=== PATIENT | male | born 1940 | race Caucasian/White ===

== ENCOUNTER 2019-01-26 16:11 | Inpatient (IN) | payer OTHER ==
[~2019-01-26] VITALS: Ht 167.6 cm; Wt 105.9 kg
[~2019-01-26 16:11] MED LIST: ACCUNEB SO1.25 MG/1 INH; ACETAMINOP160 MG/12 PER TUBE; ALDACTONE50 MG PO; AMLODIPINE BESY10 MG PO; ANTI-GAS40 MG/0.6 PO; AUGMENTIN 875875 MG PO; BISACODYL SUPP10 MG RECTAL; CALCIUM + VITA1 EACH PO; CARAFATE 1 GM TA1 G1 PO; CARAFATE1 GM/10 ML PO; CHOLESTYRAMINE R5 GM MC; COLACE100 MG PO; ERYTHROMYCIN250 M1 PO; FAMOTIDINE40 MG/5 ML PER TUBE; FENTANYL PA25 MCG/HR TRANSDERM; FLOMAX0.4 MG PO; GLUCOTROL5 MG PO; HYDROCODONE/ACETAMIN PO; LISINOPRIL30 MG PO; LOPERAMIDE 2 MG2 M1 PO; LOPRESSOR25 PO; LOPRESSOR50 PO; NORCO 5-325 TA1 EACH PO; NOVOLOG100 UNIT/1 SUBQ; OMEPRAZOLE40 MG PO; ONDANSETRON HCL4 M2 PO; PACERONE 200 M200 M1 PO; PREVACID 15 MG15 M4 PER TUBE; PRINIVIL20 MG PO; PROBIOTIC1 EAC1 PO; PROTONIX40 M1 PO; REGLAN10 MG PO; ZANTAC 150MG T150 MG PO; ZOCOR20 MG PO
[2019-01-26 16:18] VITALS: BP 167/81
[2019-01-26 16:40] LABS: URINE BILIRUBIN NEGATIVE (Negative); URINE BLOOD NEGATIVE (Negative); URINE CLARITY CLEAR; URINE COLOR YELLOW; URINE GLUCOSE-RANDOM* NEGATIVE (Negative); URINE KETONES NEGATIVE (Negative); URINE LEUKOCYTES-REFLEX NEGATIVE (Negative); URINE NITRITE-REFLEX NEGATIVE (Negative); URINE PROTEIN (DIPSTICK) TRACE (Negative); URINE SPECIFIC GRAVITY 1.015 (1.005-1.035); URINE UROBILINOGEN 0.2 E.U./dl (0.2-1.0)
[2019-01-26 17:02] LABS: HEMATOCRIT 42.9 % (42.0-52.0); HEMOGLOBIN 14.6 gm/dL (14.0-18.0); MCH 33.2 pg (26.0-34.0); MCHC 33.9 g/dL (28.0-37.0); MCV 97.8 fL (80.0-100.0); PLATELET COUNT 159 thou/uL (150-400); RBC 4.38 mil/uL (4.50-6.00); RDW 14.6 % (10.5-14.5); WBC 12.1 thou/uL (4.0-11.0)
[2019-01-26] MEDS ORDERED: TRADJENTA5 MG (17:09)
[2019-01-26] MEDS ORDERED: GLIPIZIDE 10 MG10 MG PO (17:10)
[2019-01-26] MEDS ORDERED: GLUCOTROL5 MG PO (17:10)
[2019-01-26 17:12] LABS: CALCIUM 9.9 mg/dL (8.5-10.1); CREATININE 1.4 mg/dL (0.7-1.3)
[2019-01-26] MEDS ORDERED: AMLODIPINE BESY10 MG PO (17:12)
[2019-01-26] MEDS ORDERED: METOCLOPRAMIDE10 MG PO (17:14)
[2019-01-26] MEDS ORDERED: PROTONIX40 M1 PO (17:14)
[2019-01-26] MEDS ORDERED: ZOCOR20 MG PO (17:15)
[2019-01-26 17:18] LABS: ALBUMIN 3.4 g/dL (3.4-5.0); TOTAL BILIRUBIN 0.8 mg/dL (<0.1-1.0); TOTAL PROTEIN 8.3 g/dL (6.4-8.2)
[2019-01-26 17:26] LABS: ABSOLUTE NEUTROPHILS 8.5 thou/uL (1.4-8.2)
[2019-01-26 18:30] VITALS: BP 133/73
[2019-01-26 18:44] VITALS: BP 141/71
[2019-01-26 19:08] LABS: INR 1.5; PROTIME 15.7 Seconds (9.3-11.4)
[2019-01-26 20:29] VITALS: BP 148/69
--- NOTE | 2019-01-27 03:13 | NUR ---
PATIENT ARRIVEN ON UNIT AT 191 VIA W/C ACCOMPANINED BY FAMILY AND ED PERSONEL. PATIENT ALERT AND ORIENTED X4. WEAK ON LEFT SIDE AND NEEDS HELP WALKING. USES URINAL. PATIENT NPO WITH SIPS WITH PO MEDS. C/O PAIN X1. MED GIVEN. SLEPT OFF AND ON DURING NIGHT.
[2019-01-27 04:06] VITALS: BP 146/76
[2019-01-27 05:45] LABS: HEMATOCRIT 41.8 % (42.0-52.0); HEMOGLOBIN 14.1 gm/dL (14.0-18.0); MCHC 33.7 g/dL (28.0-37.0); MCV 98.1 fL (80.0-100.0); RBC 4.26 mil/uL (4.50-6.00); RDW 14.8 % (10.5-14.5)
[2019-01-27 06:03] LABS: CALCIUM 9.1 mg/dL (8.5-10.1); CREATININE 1.5 mg/dL (0.7-1.3); MAGNESIUM 1.5 mg/dL (1.8-2.4); PHOSPHORUS 2.8 mg/dL (2.5-4.9)
[2019-01-27 06:07] LABS: POTASSIUM 5.1 mmol/L (3.5-5.1)
[2019-01-27 07:40] VITALS: BP 165/82
[2019-01-27 14:39] LABS: INR 1.5; PROTIME 15.7 Seconds (9.3-11.4)
--- NOTE | 2019-01-27 15:21 | NUR ---
ASSUMED CARE OF PT AT 0700. ASSESSMENT CHARTED. A&O,X4. STRICT NPO, OKAY TO GIVE METOPROLOL WITH SIP OF WATER PER PHYSICIAN. NO N/V THIS SHIFT. UPPER GI STUDY THIS AM, INCONCLUSIVE. DR. ANDERSON NOTIFIED. NEW ORDERS FOR KUB TOMORROW. CONTINUE NPO. FAMILY AT BEDSIDE. Q6H ACCUCHECKS, INSULIN GIVEN NEEDED PER SLIDING SCALE - HELD DUE TO NPO. WILL CONTINUE TO MONITOR.
--- NOTE | 2019-01-27 16:51 | NUR ---
ASSESSMENT-PT LIVES AT HOME WITH HIS WHO IS INDEPENDNT AND ABLE TO ASSIST AT HOME. PT WALKS ON HIS OWN AND DOES HIS OWN ADLS. BOTH DRIVE. THEY HAVE A WALK-IN TUB. THEY HAVE A DTR IN THE AREA THAT CHECKS ON THEM. PT HAS HAD HH SEVICES IN THE PAST BUT CANNOT REMEMBER THE NAME OF THE AGENCY. PT/ VOICE NO DC CPONCERNS AT THIS TIME. FOLLOWING TO ASSIST WITH DC PLANNING.
[2019-01-27 19:11] VITALS: BP 176/74
--- NOTE | 2019-01-28 04:50 | NUR ---
PATIENT ALERT AND ORIENTED X4. C/O PAIN, MED GIVEN. NO C/O NAUSEA THUS FAR THIS SHIFT. SLEPT MOST OF NIGHT. REMAINS NPO. KUB SCHEDULED FOR AM.
[2019-01-28 05:34] VITALS: BP 155/57
[2019-01-28 06:08] LABS: HEMATOCRIT 41.2 % (42.0-52.0); HEMOGLOBIN 14.2 gm/dL (14.0-18.0); MCH 33.7 pg (26.0-34.0); MCHC 34.4 g/dL (28.0-37.0); MCV 97.9 fL (80.0-100.0); PLATELET COUNT 179 thou/uL (150-400); WBC 10.7 thou/uL (4.0-11.0)
[2019-01-28 06:43] LABS: ALBUMIN 2.9 g/dL (3.4-5.0); CALCIUM 8.7 mg/dL (8.5-10.1); CREATININE 0.8 mg/dL (0.7-1.3); MAGNESIUM 2.3 mg/dL (1.8-2.4); POTASSIUM 4.4 mmol/L (3.5-5.1); TOTAL BILIRUBIN 1.3 mg/dL (<0.1-1.0); TOTAL PROTEIN 7.4 g/dL (6.4-8.2)
[2019-01-28 07:50] LABS: ABSOLUTE NEUTROPHILS 8.5 thou/uL (1.4-8.2); LARGE PLATELETS SEVERAL
--- NOTE | 2019-01-28 18:30 | NUR ---
PT SEEN BY SURGEON AND ORDER FOR NG PLACEMENT. NG INSERTED TO RT NARE W/O INCIDENT. WHITE CONTRAST RETURNED WHICH CHANGED TO LT MILKY BROWN COLOR. PT STATED HE FELT SOME BETTER. REMAINS NPO. ENC TO SIT VERY UPRIGHT. MEDICATED FOR PAIN ONCE W/ RELIEF.
[2019-01-28 20:15] VITALS: BP 116/74; BP 178/76
--- NOTE | 2019-01-29 04:10 | NUR ---
PT LYING IN BED. DENIES NEED FOR PAIN MEDICATION. DENIES NAUSEA. NG PUTTING OUT COPIOUS AMOUNT OF DRAINAGE. VOIDING PER URINAL. RESTING COMFORTABLY. NO NEEDS VOICED. CALL LIGHT WITHIN REACH. WILL CONTINUE TO PROVIDE FREQUENT OBSERVATION.
[2019-01-29 05:18] LABS: HEMATOCRIT 41.1 % (42.0-52.0); HEMOGLOBIN 13.9 gm/dL (14.0-18.0); MCH 33.3 pg (26.0-34.0); MCHC 33.8 g/dL (28.0-37.0); MCV 98.4 fL (80.0-100.0); RBC 4.18 mil/uL (4.50-6.00); RDW 15.1 % (10.5-14.5); WBC 8.3 thou/uL (4.0-11.0)
[2019-01-29 05:36] LABS: ALBUMIN 2.8 g/dL (3.4-5.0); CALCIUM 8.1 mg/dL (8.5-10.1); CREATININE 1.1 mg/dL (0.7-1.3); POTASSIUM 3.5 mmol/L (3.5-5.1); TOTAL BILIRUBIN 0.8 mg/dL (<0.1-1.0); TOTAL PROTEIN 7.1 g/dL (6.4-8.2)
[2019-01-29 07:17] VITALS: BP 155/88
--- NOTE | 2019-01-29 14:31 | NUR ---
Assumed care of pt at 0700. Pt a&ox4. NG tube in place on low-intermittent suction. KUB done today. Shows some improvement. IVF infusing. Hal pain. Call light within reach. Will continue to monitor.
[2019-01-29 16:41] VITALS: BP 147/78
[2019-01-29 19:40] VITALS: BP 154/78
[2019-01-30 04:03] VITALS: BP 155/82
[2019-01-30 05:52] LABS: HEMATOCRIT 41.6 % (42.0-52.0); HEMOGLOBIN 14.3 gm/dL (14.0-18.0); MCH 33.6 pg (26.0-34.0); MCHC 34.5 g/dL (28.0-37.0); MCV 97.5 fL (80.0-100.0); RBC 4.27 mil/uL (4.50-6.00); WBC 9.5 thou/uL (4.0-11.0)
[2019-01-30 07:23] VITALS: BP 177/52
--- NOTE | 2019-01-30 07:39 | NUR ---
PT LYINH IN BED. VOIDING PER URINAL. DILAUDID PROVIDING PAIN RELIEF. RESTING COMFORTABLY. NO NEEDS VOICED. CALL LIGHT WITHIN REACH. WILL CONTINUE TO PROVIDE FREQUENT OBSERVATION.
[2019-01-30 08:55] LABS: CALCIUM 8.8 mg/dL (8.5-10.1); CREATININE 1.2 mg/dL (0.7-1.3); POTASSIUM 3.5 mmol/L (3.5-5.1); TOTAL BILIRUBIN 0.8 mg/dL (<0.1-1.0); TOTAL PROTEIN 7.4 g/dL (6.4-8.2)
--- NOTE | 2019-01-30 14:46 | NUR ---
Assumed care of pt at 0700. Pt a&ox4. NG tube in place. Clamped per Dr. voss. Pt had 3 BMs today. Ambulated with SBA. Denies pain/nausea. Call light within reach. Will continue to monitor.
--- NOTE | 2019-01-30 15:26 | H ---
[facility] [address] [place] [address] HISTORY AND PHYSICAL Name: DANIEL LESTER Room #: 428-P ADM IN M.R.#: [id number] Admission: 01/26/19 Attend Phys: Ap Cortez MD Discharge: Date of : 42 Report #: [id number] THIS REPORT FOR: //name// CC: Ap Del [place] DATE OF SERVICE: 01/26/2019 ATTENDING PHYSICIAN: Ap Cortez M.D. CHIEF COMPLAINT: Abdominal pain. HISTORY OF PRESENT ILLNESS: The patient is a very pleasant 79-year-old gentleman with many medical comorbidities including cirrhosis who presents with abdominal pain. 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 The pain worsens, so he presented to the ER. The patient endorses a bowel movement this morning, but has not passed flatus throughout the day. He denies current nausea or vomiting. The pain is located in the periumbilical region, is sharp in nature. It does not radiate anywhere. It has been continuous. He is not aware of any relieving or exacerbating factors other than pain meds, which relieves the pain. The patient underwent a CT scan that demonstrated high-grade small-bowel obstruction due to ventral hernia. PAST MEDICAL HISTORY: 1. Cirrhosis, stage 4. 2. Hyperlipidemia. 3. Diabetes mellitus. 4. Several gastric ulcers, one episode was perforated gastric ulcer, one episode was bleeding gastric ulcer. 5. Morbid obesity. 6. History of cerebrovascular accident with left-sided weakness. 7. Gallstone pancreatitis. 8. Severe peptic ulcer disease. 9. History of esophageal food bolus. 10. Esophageal stricture. 11. Hypertension. 12. Gastroesophageal reflux disease. 13. Former smoker. 14. Former alcoholism. 15. Hyperlipidemia. 16. No teeth. PAST SURGICAL HISTORY: 1. Gastric tube. [facility] [address] [place] [address] HISTORY AND PHYSICAL Name: DANIEL LESTER Room #: [facility] IN .R.#: [id number] Admission: 01/26/19 Attend Phys: Ap Cortez MD Discharge: Date of : 42 Report #: [id number] 2. Several exploratory laparotomies for gastric ulcers. 3. Cholecystectomy. ____. FAMILY HISTORY: Denies coagulopathy or cancers within the family. REVIEW OF SYSTEMS: CONSTITUTIONAL: No fever. No chills. HEENT: Denies blurring of vision, double vision, headaches, hearing loss, sinus drainage or sore throat. Denies blurring of vision, double vision, headaches, hearing loss, sinus drainage or sore throat. CARDIOVASCULAR: Denies chest pain, palpitations, orthopnea or paroxysmal nocturnal dyspnea. RESPIRATORY: Denies cough, wheezing, hemoptysis, or shortness of air. GASTROINTESTINAL: Please see above and below. GENITOURINARY: Denies dysuria or hematuria or kidney stones. No urinary frequency, urgency or incontinence. Denies dysuria or hematuria or kidney stones. No urinary frequency, urgency or incontinence. MUSCULOSKELETAL: No joint pain. No muscle pain. NEUROLOGICAL: Denies tremor, stroke or seizure. Denies tremor, stroke or seizure. HEMATOLOGIC / LYMPHATICS: Denies easy bruising, easy bleeding or enlarged lymph nodes. SKIN: No rash or ulceration. ENDOCRINE: No heat or cold intolerance PSYCHIATRIC: Denies depression, anxiety, or schizophrenia. PHYSICAL EXAMINATION: VITAL SIGNS: Temperature 36.5, pulse ox 97, blood pressure 167/81, pulse 90, respiratory rate 18, weight 104 kilograms. GENERAL: No apparent distress, alert and oriented x3. HEENT: PERRLA, EOMI, MMM, NCAT NECK: Supple. No LAD CARDIOVASCULAR: Regular rhythm and rate. Hemodynamically stable. Normal capillary refill. Regular rhythm and rate. Hemodynamically stable. Normal capillary refill. PULMONARY: Nonlabored. Clear to auscultation bilaterally ABDOMEN: Soft, large ventral hernias with a Somali cheese type defect. All hernia defects are reducible and nontender. The skin overlying the hernias is intact with no erythema, edema or exudate. There is no breakdown. EXTREMITIES: Calves soft, nontender, no edema. SKIN: No rashes or bruises. PSYCHIATRIC: Normal mood and affect Normal mood and affect NEUROLOGICAL: Grossly intact. CN II-XII grossly intact. MUSCULOSKELETAL: 5/5 strength in upper extremities and lower extremities [address] [address] HISTORY AND PHYSICAL Name: DANIEL LESTER Room #: 428-P ADM IN M.R.#: [id number] Admission: 01/26/19 Attend Phys: Ap Cortez MD Discharge: Date of : 42 Report #: [id number] bilaterally LYMPHATICS: No cervical, inguinal, or supraclavicular lymphadenopathy. LABORATORY DATA: Sodium 133, potassium 4, creatinine 1.4, total bilirubin 0.8, AST is 49, ALT is 40, alkaline phosphatase is 150, albumin is 3.4. Lipase is 306. White blood count 12.1, hemoglobin 14.6, hematocrit 42.9, platelets 159. CT SCAN OF THE ABDOMEN AND PELVIS IMPRESSION: 1. High-grade small-bowel obstruction due to entrapment within the left paracentral ventral hernia. Maximum small bowel distention 4 cm with a transition point in the hernia and decompression of the distal bowel. 2. Multiple ventral hernias, at least 6 identifiable hernias extending along the abdomen approximately 20 cm craniocaudal length overall. Several of these contain small bowel and colon without obstruction other than the obstructing hernia above. 3. Prior cholecystectomy. ASSESSMENT: The patient is a very pleasant 79-year-old gentleman with cirrhosis and possible small-bowel obstruction due to ventral hernias. DIAGNOSES: 1. Several reducible ventral hernias. 2. Possible small-bowel obstruction. 3. Abdominal pain. 4. Cirrhosis. 5. Acute kidney injury versus chronic kidney disease. 6. Morbid obesity. 7. Hypertension. 8. Hyperlipidemia. PLAN: 1. Admit to Dr. Cortez. 2. NPO. if the patient's symptoms are improved in the morning, we will consider a diet. If not improved, we will consider a small bowel follow-through. 3. No alarming features concerning for bowel compromise. The patient's hernias are completely reducible and he is not having much pain or tenderness at the sites. The skin overlying it is normal. 4. IV analgesics and antiemetics. 5. Maintenance IV fluids while n.p.o. Cautious fluids with history of cirrhosis. 6. I did spend well over an hour in consultation with the patient reviewing his [facility] [address] [place] [address] HISTORY AND PHYSICAL Name: DANIEL LESTER Room #: 428-P ADM IN M.R.#: [id number] Admission: 01/26/19 Attend Phys: Ap Cortez MD Discharge: Date of : 42 Report #: [id number] chart, examining the patient taking the history and performing reduction of his hernias. <ELECTRONICALLY SIGNED> By: Ap Cortez MD 01/30/19 1526 [id number] Ap Cortez MD /nt
[2019-01-30 17:09] VITALS: BP 181/86
[2019-01-30 20:50] VITALS: BP 188/67
[2019-01-31 00:20] VITALS: BP 157/70
--- NOTE | 2019-01-31 02:22 | NUR ---
ASSUMED CARE OF PT @1900 PT ASSESSED AT START OF SHIFT. A&OX4 NG TUBE INTACT AND CLAMPED. UP WITH SBA TO THE RESTROOM HAD 4 LIQUID STOOLS TONIGHT. IV FLUIDS INFUSING. PT STILL NPO. BLOOD PRESSURE MEDS GIVEN VIA TUBE FOR HIGH BP. POC DONE WILL CONTINUE TO MONITOR TILL EOS
[2019-01-31 03:55] VITALS: BP 144/63
[2019-01-31 08:19] VITALS: BP 167/68
[2019-01-31 16:02] VITALS: BP 159/77
--- NOTE | 2019-01-31 18:03 | NUR ---
PT A&OX4, IV INTACT IN L FA. AMBULATES WITH STANDBY ASSIST. DENIES NEED FOR PAIN MED, NO N/V NOTED TODAY. NG TUBE REMOVED PER ORDER AND PLACED ON CLEAR LIQUIDS THAT PT TOLERATED WELL. WILL CONT POC.
[2019-01-31 19:36] VITALS: BP 169/80
--- NOTE | 2019-02-01 00:58 | NUR ---
ASSUMED CARE OF PT @1900 PT ASSESSED AT START OF SHIFT A&OX4 AT THIS SHIFT. NG TUBE HAS BEEN D/C'D DURING THE DAY AND PT IS ON CLEAR LIQUID DIET AND JERE IT WELL. IV FLUIDS INFUSING. USES URIBAL AT NIGHT AND UP WITH SBA TO BATHROOM WILL CONTINUE TO MONITLL TILL EOS
[2019-02-01 04:39] VITALS: BP 154/72
[2019-02-01 08:38] VITALS: BP 156/79
--- NOTE | 2019-02-01 14:28 | NUR ---
PT A&OX4, IV INFUSING FLUIDS IN L FA W/O COMPS. AMBULATES WITH STAND BY ASSIST. TOLERATING PO WELL, NO REPORTS OF N/V. WILL CONT POC.
[2019-02-01 16:38] VITALS: BP 145/67
--- NOTE | 2019-02-01 16:58 | NUR ---
S/W PT AND HE HAS NO CONCERS RELATED TO DC HOME ONCE MEDICALLY STABLE. ABLE TO ASSIST NEEDED AT HOME. ANTICIPATE DC HOME SOON.
[2019-02-01 19:40] VITALS: BP 163/81
[2019-02-02 03:40] VITALS: BP 156/88
--- NOTE | 2019-02-02 05:48 | NUR ---
ASSUMED CARE OF PT @1900 PT ASSESSED AT START OF SHIFT A&OX4. DENIES PAIN, N/V. ANTICIPATING D/C TOMORROW. UP AD ONEYDA TO THE BATHROOM AND HAD 1 BM TONIGHT. FALL PREC IN PLACE AND WILL CONTINUE TO MONITOR TILL EOS
[2019-02-02 07:28] VITALS: BP 164/80
--- NOTE | 2019-02-02 08:57 | NUR ---
Nutrition: Pt seen for LOS. Admit with SBO. Hx: cirrhosis, DM, HTN, CVA, gallstone pancreatitis, gastric ulcers. Per surgery, recurrent SBO likely (w/ several ventral hernias). NPO x 5 days (01/26-01/31). Clear liquids started 01/31 and solids w/ carb controlled diet 02/01. Visited at breakfast. Pt admits to early satiety, but trying his best. No meal intakes yet recorded. +BMs in recent days. BGs 99-124 mg/dl since 01/31 - well controlled likely d/t no-low PO. Educated on early satiety- focus on protein first, save side dishes for last. Eggs, skim milk encouraged today. Recommend eating q 2-3 hrs also. Low nutrition risk w/ education on early satiety, protein, low fiber initially for easier digestion/healing. Ensure Enlive added to lunch for extra support too.
--- NOTE | 2019-02-02 10:01 | NUR ---
PATIENT CARE WAS ASSUMED AT 0715.PATIENT IS ALERT AND ORIETNED X4.PATIENT IS ON ROOM AIR.HAS NO COMPLAINS OF NAUSEA/VOMITING.NO COMPLAINS OF PAIN AT THIS TIME.PATIENT HAS BEEN GETTIN GUP WITH STAND BY ASSIST.PATIENT HAS IV INTACT WITH FLUIDS INFUSING.PATIENT WAS STARTED TODAY ON SUPPLEMENT FOR LUNCH.PLANS FOR DISCHARGE IS TODAY.PATIENT HAS CALL LIGHT,PHONE, AND PERSONAL BELONGINGS WITHIN REACH.
[2019-02-02] MEDS ORDERED: GLUCOTROL5 MG PO (11:38)
[2019-02-02 11:52] VITALS: BP 164/80
== END 2019-02-02 17:03 | disposition home or self-care (01) | DRG 393 ==
LOC: ER 16:11 → 4E 18:45 → ER 18:45 → 4E 19:00 → EROBS 19:00 → 4E 19:15 → ENTRNSPT 02-02 14:12 → EDTRNSPTSTS 02-02 14:14 → 4E 02-02 17:03
PROVIDERS: Emergency Medicine; Hospitalist; Nurse Practitioner Family; ADMIT Surgery
PROC: 0D9670Z Drainage of Stomach with Drainage Device, Via Natural or Artificial Opening (ICD-10-PCS; principal; 2019-01-28)
DX: K43.6 Other and unspecified ventral hernia with obstruction, without gangrene (principal); N17.0 Acute kidney failure with tubular necrosis; I69.354 Hemiplegia and hemiparesis following cerebral infarction affecting left non-dominant side; Z43.1 Encounter for attention to gastrostomy; K74.60 Unspecified cirrhosis of liver; N18.9 Chronic kidney disease, unspecified; K21.9 Gastro-esophageal reflux disease without esophagitis; I12.9 Hypertensive chronic kidney disease with stage 1 through stage 4 chronic kidney disease, or unspecified chronic kidney disease; E11.22 Type 2 diabetes mellitus with diabetic chronic kidney disease; E66.01 Morbid (severe) obesity due to excess calories; E78.5 Hyperlipidemia, unspecified; E83.42 Hypomagnesemia; D72.829 Elevated white blood cell count, unspecified; K76.9 Liver disease, unspecified; Z79.899 Other long term (current) drug therapy; Z88.8 Allergy status to other drugs, medicaments and biological substances; Z68.37 Body mass index [BMI] 37.0-37.9, adult; Z90.49 Acquired absence of other specified parts of digestive tract; Z87.11 Personal history of peptic ulcer disease; Z91.041 Radiographic dye allergy status; Z87.891 Personal history of nicotine dependence
CPT/HCPCS: 10783

== ENCOUNTER 2019-05-14 09:21 | Inpatient (IN) | payer OTHER ==
[~2019-05-14] VITALS: Ht 167.6 cm; Wt 101.6 kg
[2019-05-14 09:21] VITALS: BP 154/88
[~2019-05-14 09:21] MED LIST changes: +GLIPIZIDE 10 MG10 MG PO; +METOCLOPRAMIDE10 MG PO; +TRADJENTA5 MG
[2019-05-14 10:08] LABS: ABSOLUTE NEUTROPHILS 10.6 thou/uL (1.4-8.2); BASOPHILS 0.5 % (0.0-2.0); EOSINOPHILS 0.1 % (0.0-3.0); HEMATOCRIT 44.2 % (42.0-52.0); HEMOGLOBIN 15.1 gm/dL (14.0-18.0); LYMPHOCYTES 11.9 % (24.0-44.0); MCH 33.1 pg (26.0-34.0); MCHC 34.1 g/dL (28.0-37.0); MCV 97.1 fL (80.0-100.0); MONOCYTES 10.8 % (1.0-8.0); PLATELET COUNT 272 thou/uL (150-400); POLYS 76.7 % (36.0-66.0); RBC 4.55 mil/uL (4.50-6.00); RDW 15.4 % (10.5-14.5); WBC 13.7 thou/uL (4.0-11.0)
[2019-05-14] MEDS ORDERED: GLIPIZIDE 10 MG10 MG PO (10:09)
[2019-05-14] MEDS ORDERED: GLIPIZIDE5 MG PO (10:09)
[2019-05-14] MEDS ORDERED: CARAFATE1 GM PO (10:11)
[2019-05-14 10:18] LABS: CALCIUM 9.5 mg/dL (8.5-10.1); CREATININE 1.9 mg/dL (0.7-1.3)
[2019-05-14 10:25] LABS: ALBUMIN 3.6 g/dL (3.4-5.0); TOTAL BILIRUBIN 1.1 mg/dL (<0.1-1.0); TOTAL PROTEIN 8.7 g/dL (6.4-8.2)
[2019-05-14 10:53] LABS: URINE BLOOD TRACE (Negative); URINE CLARITY CLEAR; URINE COLOR YELLOW; URINE GLUCOSE-RANDOM* NEGATIVE (Negative); URINE KETONES TRACE (Negative); URINE LEUKOCYTES-REFLEX NEGATIVE (Negative); URINE NITRITE-REFLEX NEGATIVE (Negative); URINE PROTEIN (DIPSTICK) 2+ (Negative); URINE SPECIFIC GRAVITY >= 1.030 (1.005-1.035); URINE UROBILINOGEN 0.2 E.U./dl (0.2-1.0)
[2019-05-14 10:54] LABS: ICTOTEST (BILI CONFIRMATORY) Negative (Negative); URINE BILIRUBIN NEGATIVE (Negative)
[2019-05-14 11:03] LABS: MUCUS >6 Heavy strn/LPF (None Seen); SQUAMOUS 0-3 Few /LPF (0-3); URINE RBC None Seen /HPF (0-2); URINE WBC-REFLEX 0-5 Rare /HPF (0-5)
[2019-05-14 11:04] LABS: BACTERIA-REFLEX None Seen /HPF (None Seen); CRYSTALS None Seen /LPF (None Seen); FINE GRANULAR CASTS 0-3 Few /LPF (None Seen); HYALINE CASTS 4-10 Moderate /LPF (None Seen)
[2019-05-14 12:29] VITALS: BP 146/80
[2019-05-14 12:35] VITALS: BP 146/80
[2019-05-14 13:10] VITALS: BP 150/71
[2019-05-14 14:26] LABS: MAGNESIUM 1.8 mg/dL (1.8-2.4)
--- NOTE | 2019-05-14 15:32 | NUR ---
PT ADMITTED TO 447 FROM THE ER AT 1310 IN NO ACUTE DISTRESS. PT SEEN BY DR. GEIGER IN THE ER AND ORDERS OBTAINED. IV FLUIDS INFUSING. PT STATES NO NAUSEA AT THIS TIME BUT ABD PAIN INCREASING. DR. GEIGER PAGED FOR PAIN MED ORDER. DR. ANDERSON CONSULTED AND DR. BETANCOURT CALLED TO STATE HE WILL SEE PT.
[2019-05-14 16:00] VITALS: BP 151/88
--- NOTE | 2019-05-14 18:31 | NUR ---
UPDATE ON ADMISSION ASSESSMENT - CHARTED ADM ASSESSMENT ERRONEOUSLY PT WAS ASSESSED AT 1330.
[2019-05-14 19:26] VITALS: BP 140/65
--- NOTE | 2019-05-15 04:44 | NUR ---
PATIENT ALERT AND ORIENTED X4. NOT OOB DURING THE NIGHT. TAKING MEDS W/O COMPLICATION. IVF INFUSING W/O COMPLICATION. COOPERATIVE WITH CARE. VOIDING PER URINAL. BS MONITORED PER ORDER. REMAINS NPO. C/O PAIN TO HIS ABDOMEN WHICH HE STATES MOVES FROM SIDE TO SIDE, GIVEN IV FENTANYL PER PRN ORDER WITH GOOD RELIEF. PATIENT ABLE TO SLEEP DURING THE NIGHT AND SAYS HE FEELS BETTER THIS MORNING. WILL MONITOR.
[2019-05-15 05:34] VITALS: BP 146/62
[2019-05-15 06:23] LABS: HEMATOCRIT 41.2 % (42.0-52.0); HEMOGLOBIN 13.6 gm/dL (14.0-18.0); MCHC 33.1 g/dL (28.0-37.0); MCV 99.6 fL (80.0-100.0); RBC 4.14 mil/uL (4.50-6.00); RDW 15.4 % (10.5-14.5); WBC 7.7 thou/uL (4.0-11.0)
[2019-05-15 06:30] LABS: CALCIUM 8.7 mg/dL (8.5-10.1); CREATININE 1.3 mg/dL (0.7-1.3); MAGNESIUM 1.8 mg/dL (1.8-2.4); POTASSIUM 3.7 mmol/L (3.5-5.1)
[2019-05-15 09:00] VITALS: BP 138/71
--- NOTE | 2019-05-15 12:07 | NUR ---
ASSESSMENT-PT LIVES AT HOME WITH HIS WHO IS IN GOOD HEALTH AND INDEPENDENT. PT WAS INDEPENDENT OF ADLS AND AMBULATION PRIOR TO ADMISSION. BOTH DRIVE. PT HAS HAD [facility] IN THE PAST. PT HAS A WALK-IN TUB AND [facility] IS LOCATED ON MAIN LEVEL. PT VOICES NO DC CONCERNS AT THIS TIME. FOLLOWING TO ASSIST WITH DC PLANNING.
--- NOTE | 2019-05-15 13:58 | NUR ---
ASSUMED CARE OF PT AT 0700. PT IS A&O X4. IV IN R FOREARM IS DRY AND INTACT. PT IS AC AND HS. PT IS NOT A FALL RISK. NO NG TUBE DUE TO PT HAVING REPAIRED STOMACH ULCERS. PT IS STRICLY NPO. LUNGS ARE CLEAR. PT WENT FOR AN XRAY. CALL LIGHT IS WITHIN REACH AND BED IS IN THE LOWEST POSITION. [facility]. REPORT GIVEN TO NURSE.
--- NOTE | 2019-05-15 15:20 | NUR ---
SW reviewed chart and spoke with nursing. Pt was [facility] to [facility] from [facility] today. PT/OT ordered to evaluate pt for discharge needs. SW is following to assist as needed with discharge planning.
[2019-05-15 16:40] VITALS: BP 165/81
--- NOTE | 2019-05-15 19:36 | NUR ---
PATIENT TRANSFERRED FROM [facility], REPORT FROM [facility]. PATIENT ALERT AND ORIENTED X 4. PATIENT UP WITH ASSIST, HAS STEADY GAIT. STRICT NPO, NEW ORDER FOR CLEAR LIQUIDS RECEIVED FOR DINNER. NO NAUSEA REPORTED THIS SHIFT, OK TO ADVANCE TOLERATED IF CLEAR LIQ. TOLERATED. GLYCERIN SUPP. GIVEN, NO RESULTS BY END OF THE SHIFT. PATIENT HAS RIGHT HAND IV WITH NS AT 80CC/HR, RECEIVED 2 IV ANTIBIOTICS THIS SHIFT. VOIDS PER URINAL. WILL CONTINUE TO MONITOR.
[2019-05-15 20:45] VITALS: BP 158/79
[2019-05-15 22:00] VITALS: BP 158/79
--- NOTE | 2019-05-16 04:21 | NUR ---
ASSUMED CARE OF PATIENT AT SHIFT CHANGE. ASSESSMENT CHARTED. MEDICATIONS GIVEN PER MAR W/ ASSIST FROM TERA Mcmillan RN. PATIENT IS A&OX4. VSS. PATIENT DENIES PAIN AT THIS TIME. PATIENT GETS UP TO TOILET WITH ASSIST AND TOLERATES WELL WITH NO C/O PAIN. PATIENT HAS NOT HAD ANYTHING BUT WATER THIS SHIFT. WILL ADVANCE HIS DIET TO FULL LIQUIDS IF DESIRED. URINE OUTPUT IS ADEQUATE. PATIENT WAS GIVEN HIS GLYCERIN SUPPOSITORY THIS SHIFT AND HAD A BM ABOUT 2HRS LATER. INSULIN WAS NOT NEEDED THIS SHIFT. PATIENT WILL CONTINUE TO WORK WITH PT AND OT. PATIENT CALLS OUT APPROPRIATELY. WILL CONTINUE TO MONITOR AND FOLLOW POC.
[2019-05-16 07:00] LABS: HEMATOCRIT 40.1 % (42.0-52.0); HEMOGLOBIN 13.4 gm/dL (14.0-18.0); MCH 33.2 pg (26.0-34.0); MCHC 33.4 g/dL (28.0-37.0); MCV 99.5 fL (80.0-100.0); RBC 4.03 mil/uL (4.50-6.00); WBC 5.9 thou/uL (4.0-11.0)
[2019-05-16 07:12] LABS: CALCIUM 8.3 mg/dL (8.5-10.1); CREATININE 1.2 mg/dL (0.7-1.3); MAGNESIUM 1.7 mg/dL (1.8-2.4); PHOSPHORUS 3.3 mg/dL (2.5-4.9); POTASSIUM 3.5 mmol/L (3.5-5.1)
[2019-05-16 07:14] LABS: PROTIME 16.7 Seconds (9.3-11.4)
[2019-05-16 07:16] LABS: INR 1.6
[2019-05-16 07:20] VITALS: BP 163/84
[2019-05-16 13:24] VITALS: BP 128/72
--- NOTE | 2019-05-16 14:11 | NUR ---
SW reviewed chart and spoke with nursing and attending physician. Therapy evaluated pt earlier today and recommends pt d/c home with outpatient therapy if needed. Discharge home is anticipated in 1-2 days. SW is following to assist as needed with discharge planning.
--- NOTE | 2019-05-16 17:44 | NUR ---
ASSUMED CARE OF PATIENT AT 0715, PATIENT ALERT AND ORIENTED X 4. PATIENT UP WITH SBA WITH GAIT BELT AND WALKER. PATIENT C/O PAIN WITH ABDOMEN X 2 THIS SHIFT, FENTANYL 25MCG IV GIVEN X 2, WITH GOOD RELIEF. PATIENT HAS RIGHT HAND IV WITH NS AT 80CC/HR, RECEIVED 2 IV ANTIBIOTICS THIS SHIFT. PATIENT WORKED WITH PT/OT THIS SHIFT. PATIENT VOIDS PER URINAL, TEA COLORED URINE. PATIENT TOLERATING FULL LIQUID DIET W/O DIFFICULTY, NO C/O NAUSEA. NO BM THIS SHIFT BUT PASSING GAS. MIRALAX WILL START AT [address] ANDERSON. BLOOD SUGAR MONITORING ORDERED, NO INSULIN GIVEN BLOOD SUGARS ALL WNL. WILL CONTINUE TO MONITOR.
[2019-05-16 20:34] VITALS: BP 163/83
[2019-05-16 23:07] LABS: GLYCOHEMOGLOBIN (HGB A1C) 7.4 % (4.8-5.6)
--- NOTE | 2019-05-17 00:15 | NUR ---
ASSUME PT CARE ON 05/16/19 APPROX 191. PT IS A & O X4. PT STATES THAT HE HAS NOT HAD A BM SINCE 05/15/19. PT WANTS TO HAVE A BM SO HE CAN GO HOME. PT IS PASSING GAS AND HIS URINE IS DARK YELLOW. PT TOOK SCHEDULED ORAL MEDICATION AND I HUNG THE ANTIBIOTIC. PT RECEIVED FENTANYL FOR ABDOMINAL PAIN. I CALLED THE FINANCE BUSINESS PARTNER ABOUT THE PT BLOOD PRESSURE. SHE RESTARTED BP MEDICATIONS FOR THE PT. PT IS RESTING IN HIS ROOM. WILL CONTINUE TO MONITOR.
[2019-05-17 05:33] LABS: CALCIUM 8.8 mg/dL (8.5-10.1); CREATININE 1.1 mg/dL (0.7-1.3); MAGNESIUM 1.8 mg/dL (1.8-2.4); PHOSPHORUS 3.6 mg/dL (2.5-4.9); POTASSIUM 3.6 mmol/L (3.5-5.1)
[2019-05-17 05:43] LABS: HEMATOCRIT 39.1 % (42.0-52.0); MCH 32.9 pg (26.0-34.0); MCHC 33.1 g/dL (28.0-37.0); MCV 99.5 fL (80.0-100.0); RBC 3.94 mil/uL (4.50-6.00); RDW 14.8 % (10.5-14.5); WBC 5.5 thou/uL (4.0-11.0)
[2019-05-17 08:40] VITALS: BP 147/80
[2019-05-17] MEDS ORDERED: MIRALAX17 GM PO (09:46)
--- NOTE | 2019-05-17 12:06 | NUR ---
DISCHARGE NOTE: SW reviewed chart and spoke with nursing and attending physician. Pt is medically stable for discharge home today. Discharge orders/summary finalized. No discharge needs identified at this time, but is available to assist should needs arise.
[2019-05-17 12:33] VITALS: BP 147/80
--- NOTE | 2019-05-17 14:07 | NUR ---
PT A&OX4. AMBULATES WITH STAND BY ASSIST AND WALKER. DC ORDERS RECEIVED. IV REMOVED FROM R HAND. SPOUSE WILL HOT DOG VENDER PT W/I THE HOUR. DC INSTRUCTIONS, F/U APPOINTMENT AND SCRIPT REVIEWED WITH PT.
--- NOTE | 2019-05-26 03:38 | H ---
[facility] [address] [place] [address] HISTORY AND PHYSICAL Name: DANIEL LESTER Room #: 403-P [facility] IN M.R.#: [id number] Admission: 05/14/19 Attend Phys: Lashanda Rodriguez MD Discharge: 05/17/19 Date of : 44 Report #: [id number] THIS REPORT FOR: //name// CC: Baltazar Rodriguez DATE OF SERVICE: 05/14/2019 PRIMARY CARE PHYSICIAN: Dr. Baltazar Del Rio. EMERGENCY CONTACT: His , Mrs. Elaine Lester [phone] or [phone]. SECOND EMERGENCY CONTACT: His daughter, Nikkie Hale [phone]. ALLERGIES: SHELLFISH and IODINE CONTRAST. CHIEF COMPLAINT: Started having nausea and vomiting on Wednesday, which is two days ago and abdominal pain with inability to eat or drink anything for the last 3 days. HISTORY OF PRESENT ILLNESS: The patient is a very pleasant 79-year-old gentleman with a past medical history significant for cryptogenic cirrhosis stage 4, severe esophagitis, duodenal ulceration, pancreatitis and esophageal stricture. The patient also has had a history of duodenal ulcer perforation in February of 2017 and also severe bile peritonitis at that time. The patient informs me that he has had multiple surgeries and he has had this nausea and vomiting in the past as well, so he initially thought it would get better by itself, but all day yesterday even a sip of water he was unable to hold it and ended up having emesis. The patient absolutely denies any hematemesis and he informs me that he actually deals with constipation and hard stool several times. His last BM was Wednesday, but it was very small and very hard and he has been having some discomfort in the left lower quadrant as well. The patient denies any fever, shaking chills or night sweats. Denies any cough or sputum production, chest pain or any dysuria, hematuria, frequency or urgency of urination. The patient's daughter informs me that he has had problems with fluid retention and with IV fluids and other than that, she does not recall her father having any heart problems in the past, but recently the patient denies absolutely any orthopnea, paroxysmal nocturnal dyspnea or leg edema. PAST MEDICAL HISTORY: Significant for: 1. 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 2. Cryptogenic cirrhosis, stage 4. 3. Distal esophageal stricture with dilatation in 2016. 4. Peptic ulcer disease. [address] [address] HISTORY AND PHYSICAL Name: DANIEL LESTER Room #: [address] [place] [address] [place] .R.#: [id number] Admission: 05/14/19 Attend Phys: Lashanda Rodriguez MD Discharge: 05/17/19 Date of : 44 Report #: [id number] 5. Gallstone pancreatitis. 6. Biliary peritonitis secondary to perforation. 7. Ventral abdominal hernia after abdominal surgeries. 8. Hypertension. 9. Hyperlipidemia. ALLERGIES: The patient is allergic to IV CONTRAST DYE and SEAFOOD and SHRIMP and basically IODINE CONTAINING PRODUCTS. PAST SURGICAL HISTORY: Significant for: 1. Duodenal ulcer perforation with exploratory laparotomy and Tino patch of the ulcer in 2017. 2. G-tube, J-tube placement in 2017. 3. Left-sided abdominal abscess drain placement and 03/28/2015. 4. Laparoscopic cholecystectomy. PERSONAL AND SOCIAL HISTORY: The patient smoked 2-3 packs per day since he was a teenager and he quit in 1983 and alcohol, the patient drank 12-pack per day and quit in 2004. Denies any recreational drug use. Lives at home with his and she is the durable power of bankruptcy attorney for health and he wishes to be full code. PHARMACY: The patient uses [facility] in [place] for short prescriptions. FAMILY HISTORY: Significant for mother and father both and had high blood pressure as well as bad eyes, macular degeneration and grandmother had bleeding ulcers. CURRENT MEDICATIONS: 1. Simvastatin 20 mg at bedtime. 2. Metoprolol 50 mg p.o. b.i.d. 3. Amlodipine 10 mg daily. 4. Sucralfate 1 g p.o. b.i.d. 5. Pantoprazole 40 b.i.d. 6. Metoclopramide 10 daily. 7. Linagliptin 5 mg daily. 8. Glipizide 10 mg daily. REVIEW OF SYSTEMS: Ten-point review of system was done. Please see HPI above. PHYSICAL EXAMINATION: VITAL SIGNS: Vital signs when he presented to the ER at 09:21 a.m., temperature 37.1, heart rate 119, respirations 19, blood pressure 154/88, pulse oximeter 94% on room air. At the time of examination, heart rate 103, respirations 16, blood pressure 146/80, pulse oximeter 96% on room air. [facility] [address] [place] [address] HISTORY AND PHYSICAL Name: DANIEL LESTER Room #: 403-P [facility] IN M.R.#: [id number] Admission: 05/14/19 Attend Phys: Lashanda Rodriguez MD Discharge: 05/17/19 Date of : 44 Report #: [id number] GENERAL: Alert and oriented to time, place and person, very pleasant 79-year-old gentleman who is in no acute distress as long as abdominal exam is not done. HEENT: Normocephalic, atraumatic. Pupils equally round, reactive to light. Conjunctivae clear. Sclerae nonicteric. Oropharynx clear. Mucous membranes dry. NECK: Supple, no JVD, no lymphadenopathy. HEART: S1, S2, regular. Tachycardia noted. LUNGS: Clear to auscultation bilaterally without any crackles or wheezes. ABDOMEN: Soft. Normal active bowel sounds present. The patient has a well-healed scar of prior surgery noted. Large umbilical hernia noted, which is completely reducible and is nontender. The patient, however, has discomfort in the left lower quadrant without any mass, rebound or rigidity. EXTREMITIES: Without any edema and pedal pulses present. NEUROLOGIC: Nonfocal. LABORATORY DATA AND X-RAYS: WBC elevated at 13,700 with a neutrophil 76.7% without any bandemia, hemoglobin 15.1, hematocrit 44.2, platelet count 272. Chemistries indicate sodium 139, potassium 4.0, chloride 102, bicarbonate 24, anion gap 13, BUN 26, creatinine 1.9. Estimated GFR 35, glucose 221, lactic acid 3.0, calcium 9.5, total bilirubin 1.1. Magnesium and phosphorus are pending at the time of dictation. AST 30, ALT 30, alkaline phosphatase 127, total protein 8.7, albumin 3.6 and lipase 378. Lactic acid was markedly elevated at 3.0. CT scan of the abdomen and pelvis was done, which indicates: 1. Diffuse fatty liver. 2. Normal spleen. 3. Normal adrenals. 4. Pancreas is normal without any stranding. 5. Multiple dilated small bowel loops in the mid abdomen consistent with small-bowel obstruction and a transition zone is near white necked midline hernia with multiple sac components and multiple hernias in this region. The small bowel loops measures up to 4 cm. The colon is nondistended and the distal small bowel is nondistended. Small right kidney, hypodense mass is seen consistent with hemorrhagic cyst. Lung bases are essentially clear. A vertebral body with degenerative joint disease. ASSESSMENT AND PLAN: 1. Small-bowel obstruction associated with multiple midline anterior ventral hernia. 2. Cirrhosis of the liver. 3. Lactic acidosis likely secondary to small-bowel obstruction and decreased oral intake. 4. Non-insulin dependent diabetes mellitus. [address] [address] HISTORY AND PHYSICAL Name: DANIEL LESTER Room #: 403-P [facility] IN M.R.#: [id number] Admission: 05/14/19 Attend Phys: Lashanda Rodriguez MD Discharge: 05/17/19 Date of : 44 Report #: [id number] 5. Hypertension. 6. Hyperlipidemia. 7. Obesity with body mass index of 37. 8. Acute renal insufficiency with a history of chronic kidney disease stage 3. 9. History of distal esophageal stricture. 10. History of gastric ulcer including perforated gastric ulcer as well as bleeding peptic ulcer disease, gastric ulcer disease and full code. PLAN: 1. The patient will be admitted to Med/Surg Tele with normal saline. The patient has already received 1000 mL normal saline bolus. We will go ahead and give it 80 mL an hour and close watch on intake and output. The patient has cryptogenic cirrhosis stage 4 and has been on diuretics at home; however, because of decreased oral intake, the patient has worsening of renal function most likely prerenal. We will go ahead and consult Dr. Cortez who is the surgeon who has been involved in the care of the patient on prior occasion as well and knows him well. We will go ahead and place a NG tube because of the multiple level of small-bowel obstruction; however, with a history of a distal esophageal stricture and dilatation, last one done in 2017. I am reluctant to do it blindly. We will go ahead and keep the patient strict n.p.o. and we will get surgery involved. For diabetes, we will do Accu-Cheks q.i.d. a.c. and at bedtime. Since the patient is n.p.o., we will do q.i.d. q.6 hours and will do sliding scale insulin, avoid hypoglycemia, may need D5 to be given if the patient has serum glucose less than 120 to avoid hypoglycemia. 2. The patient is on 3 antihypertensives. At this time, we will hold and use hydralazine IV. 3. For ZAMZAM ; GFR is 35 so hydration and monitor electrolyte and renal function closely. 4. Hyperlipidemia. The patient is on simvastatin, but at this time, I will hold oral agent. 5. Lactic acidosis. The patient is supposed to receive 30 mL per kilo fluid; however, he is not septic and he has cryptogenic cirrhosis of liver. So, we will just give fluid and reassess lactic acid. Clearance with underlying liver disesae is an issue for lactic acidosis to resolve. and plan of care was discussed with RN taking care of patient in ER and with the patient as well as his and his daughter who was sitting at the bedside. <ELECTRONICALLY SIGNED> By: Lashanda Rodriguez MD 05/26/19 0338 [id number] Lashanda Rodriguez MD /nt
== END 2019-05-17 15:08 | disposition home or self-care (01) | DRG 393 ==
LOC: ER 09:21 → EROBS 11:50 → 4S 11:50 → 4N 05-15 11:40
PROVIDERS: Emergency Medicine; Nurse Practitioner; ADMIT Internal Medicine
DX: K43.0 Incisional hernia with obstruction, without gangrene (principal); N17.0 Acute kidney failure with tubular necrosis; N17.9 Acute kidney failure, unspecified; I69.354 Hemiplegia and hemiparesis following cerebral infarction affecting left non-dominant side; E87.2 Acidosis; I12.9 Hypertensive chronic kidney disease with stage 1 through stage 4 chronic kidney disease, or unspecified chronic kidney disease; N18.3 Chronic kidney disease, stage 3 (moderate); K74.69 Other cirrhosis of liver; E66.01 Morbid (severe) obesity due to excess calories; E11.22 Type 2 diabetes mellitus with diabetic chronic kidney disease; K57.90 Diverticulosis of intestine, part unspecified, without perforation or abscess without bleeding; K59.00 Constipation, unspecified; K21.9 Gastro-esophageal reflux disease without esophagitis; J44.9 Chronic obstructive pulmonary disease, unspecified; E78.5 Hyperlipidemia, unspecified; Z90.49 Acquired absence of other specified parts of digestive tract; Z93.1 Gastrostomy status; Z91.041 Radiographic dye allergy status; Z91.013 Allergy to seafood; Z87.11 Personal history of peptic ulcer disease; Z82.49 Family history of ischemic heart disease and other diseases of the circulatory system; Z84.89 Family history of other specified conditions; Z79.899 Other long term (current) drug therapy; Z68.36 Body mass index [BMI] 36.0-36.9, adult; Z87.891 Personal history of nicotine dependence
CPT/HCPCS: 10091; 10195

== ENCOUNTER 2021-04-16 13:50 | Inpatient (IN) | payer OTHER ==
[~2021-04-16] VITALS: Ht 167.6 cm; Wt 99.8 kg
[~2021-04-16 13:50] MED LIST changes: +CARAFATE1 GM PO; +GLIPIZIDE5 MG PO; +MIRALAX17 GM PO
[2021-04-16 15:06] VITALS: BP 130/54
[2021-04-16 15:17] LABS: HEMOGLOBIN 11.6 gm/dL (14.0-18.0); MCH 33.2 pg (26.0-34.0); MCHC 32.3 g/dL (28.0-37.0); MCV 102.9 fL (80.0-100.0); PLATELET COUNT 382 thou/uL (150-400); RDW 14.7 % (10.5-14.5); WBC 15.2 thou/uL (4.0-11.0)
[2021-04-16 15:28] LABS: CALCIUM 8.3 mg/dL (8.5-10.1); CREATININE 1.7 mg/dL (0.7-1.3)
[2021-04-16 15:38] LABS: ALBUMIN 2.7 g/dL (3.4-5.0); TOTAL PROTEIN 7.1 g/dL (6.4-8.2)
[2021-04-16 15:41] LABS: POTASSIUM 4.5 mmol/L (3.5-5.1)
[2021-04-16] MEDS ORDERED: METFORMIN HCL500 M3 PO (16:17)
[2021-04-16 16:56] LABS: ABSOLUTE NEUTROPHILS 12.3 thou/uL (1.4-8.2)
[2021-04-16 20:20] VITALS: BP 143/56
[2021-04-17 05:47] LABS: HEMATOCRIT 38.1 % (42.0-52.0); HEMOGLOBIN 12.6 gm/dL (14.0-18.0); MCH 34.2 pg (26.0-34.0); MCHC 33.1 g/dL (28.0-37.0); MCV 103.3 fL (80.0-100.0); RBC 3.69 mil/uL (4.50-6.00); RDW 14.7 % (10.5-14.5); WBC 17.4 thou/uL (4.0-11.0)
[2021-04-17 06:22] LABS: CALCIUM 7.6 mg/dL (8.5-10.1); CREATININE 1.7 mg/dL (0.7-1.3); POTASSIUM 4.9 mmol/L (3.5-5.1)
--- NOTE | 2021-04-17 07:10 | EKG ---
[address] [address] ELECTROCARDIOGRAM REPORT Name: RUBENSDANIEL GARCÍA ELIZABETH Room #: 170-6 ADM IN M.R.#: [id number] Admission: 04/16/21 Attend Phys: Juan Cortez MD Discharge: Date of : 42 Report #: [id number] [facility] ED Test Date: 2021-04-16 Test Time: 15:16:04 Pat Name: DANIEL LESTER Department: Room: 170 Gender: M Accountant Manager: DIVYA : 1940 Requested By: Tamra Layton Order Number: [id number] MD: Israel Martinez Measurements Intervals Hundred Rate: 64 P: 27 AK: 189 QRS: -28 QRSD: 95 T: -1 QT: 492 QTc: 508 Interpretive Statements Sinus rhythm Borderline left axis deviation Borderline T abnormalities, inferior leads Prolonged QT interval Compared to ECG 02/28/2015 15:51:54 T-wave abnormality now present Prolonged QT interval now present Sinus tachycardia no longer present Poor R-wave progression no longer present Myocardial infarct finding no longer present Electronically Signed On 04-17-2021 7:10:08 CDT by Israel Martinez [email or web address] <ELECTRONICALLY SIGNED> By: Israel Martinez MD, FACC 04/17/21 0710 1516 1516 Israel Martinez MD, FAC /EPI
--- NOTE | 2021-04-17 07:10 | NUR ---
TOOK OVER CARE FROM JOHN ULLOA AT THIS TIME
--- NOTE | 2021-04-17 09:30 | NUR ---
81 year old male presented to the ED on 04-16-21 with symptoms concerning for perforation/obstruction. Patient reports abdominal pain with associated N/V/D for 3-days prior. Found to have a small bowel obstruction. Lactic acid elevated and white blood cell count elevated. Per ID NOW negative and lists vaccinated with [place]. Patient is assessed as A&O x4 and lives with spouse Elaine at [facility] at [phone] and noted that daughter Milka Lockett brought patient to the ED and her number is [phone]. Both GI and Surgery have been consulted. As Medical assessment continues CM will await therapy orders to be placed to assist for discharge planning.
[2021-04-17 16:10] VITALS: BP 156/70
[2021-04-17 16:20] VITALS: BP 156/70
--- NOTE | 2021-04-17 16:56 | NUR ---
PT ORIENTED TO ROOM AND UNIT, BED LOW AND LOCKED, SIDE RAILS UPX3, CALL LIGHT IN REACH, TELE APPLIED, NGT RIGHT NARE TO LIS. WILL CONTINUE TO ASSESS.
[2021-04-17 16:57] VITALS: BP 137/49
[2021-04-17 19:25] VITALS: BP 141/59
--- NOTE | 2021-04-18 05:07 | NUR ---
Pt. rested quietly at intervals during the night when checked on during frequent rounds. He was given morphine ivp for c/o abdominal pain (see emar) with some relief noted. No c/o nausea. Continues to have ngt in left nare to low intermittent suction. Up to the comode with assistance of one. Pt. had a wine colored loose stool. Bed alarm is on.
[2021-04-18 06:03] LABS: HEMATOCRIT 32.3 % (42.0-52.0); HEMOGLOBIN 10.7 gm/dL (14.0-18.0); MCH 34.2 pg (26.0-34.0); MCHC 33.1 g/dL (28.0-37.0); MCV 103.3 fL (80.0-100.0); RBC 3.12 mil/uL (4.50-6.00); RDW 15.3 % (10.5-14.5); WBC 8.8 thou/uL (4.0-11.0)
[2021-04-18 06:15] VITALS: BP 143/52
[2021-04-18 06:34] LABS: CALCIUM 7.6 mg/dL (8.5-10.1); CREATININE 1.4 mg/dL (0.7-1.3)
[2021-04-18 06:35] LABS: POTASSIUM 3.8 mmol/L (3.5-5.1)
[2021-04-18 07:41] VITALS: BP 142/62
--- NOTE | 2021-04-18 14:39 | NUR ---
PT ADMITTED RELATED TO SMALL BOWEL OBSTRUCTION, LACTIC ACIDOSIS. CM REVIEWED CHART AND SPOKE WITH CARE TEAM. CM MET WITH PT AT BEDSIDE THIS DAY. PT APPEARE TO BE A&O X4. CM ROLE INTRODUCED. PT INDICATED THAT HE RECENTLY MOVED INTO [facility] IN [place] WITH HIS . SHE HAD ALREADY BEEN THERE AND HE HAD BEEN IN THE COMMUNITY BUT HE SOLD HOUSE AND MOVED IN WITH HER IN DECEMBER. HE INDICATED THAT HE USES A 4WW TO ASSIST WITH MOBILITY. HE INDICATED HE HAD BEEN INDEP[facility]NET WITH [facility]. PT'S DTR [facility] IS BEST CONTACT FOR HIM. PT INDICATED HE PLANS TO RETURN HOME ONCE MEDICALLY STABLE. PT INDICATED HE HAD HH YEARS AGO AND DOESN'T THINK HE'LL NEED IT UPON DC. PT HAD NGT IN PLACE BUT CARE TEAM WERE GOING TO CLAMP IT. CM FOLLOWING REGARDING DC PLANNING.
--- NOTE | 2021-04-18 16:25 | NUR ---
Assumed pt cvare at 7am. Pt in bed resting at the start of shift.Assessment completed.vss.Pt c/o abdominal pain and requested for pain shot. Morphine ivp given as ordered with relief.Dr Cortez and noe here,order noted.Pt family here to visit,updates given. Received call from Dr Cortez later this afternoon, wanted pt start clear liq diet and ng dc'd.Pt had nose bleed after ng dc'd that lasted for few minutes.Will continue to monitor.
[2021-04-18 17:25] VITALS: BP 170/60
[2021-04-18 20:37] VITALS: BP 148/80
--- NOTE | 2021-04-19 03:27 | NUR ---
Pt. rested quietly at intervals during the night when checked on during frequent rounds. No furhter nosebleeds this shift. He did c/o abdominal pain and was given pain meds (see emar) with some relief noted. No c/o nausea. Bed alarm is on.
[2021-04-19 04:19] VITALS: BP 148/63
[2021-04-19 05:56] LABS: HEMOGLOBIN 10.8 gm/dL (14.0-18.0); MCH 34.7 pg (26.0-34.0); MCHC 33.6 g/dL (28.0-37.0); MCV 103.1 fL (80.0-100.0); RBC 3.11 mil/uL (4.50-6.00); RDW 14.9 % (10.5-14.5); WBC 8.6 thou/uL (4.0-11.0)
[2021-04-19 06:11] LABS: CALCIUM 7.7 mg/dL (8.5-10.1); CREATININE 1.2 mg/dL (0.7-1.3); POTASSIUM 3.6 mmol/L (3.5-5.1)
[2021-04-19 07:24] VITALS: BP 148/62
[2021-04-19 12:20] VITALS: BP 166/58
--- NOTE | 2021-04-19 14:33 | NUR ---
ASSUMED PT CARE THIS AM. PT A&OX4, ABLE TO MAKE NEEDS KNOWN. PATIENT REMAINS CONTINENT, ABLE TO USE URINAL AND AMBULATES WITH ASSIST TO THE BEDSIDE COMMODE. PATIENT COMPLAINS OF ABDOMINAL PAIN, DECREASES WITH PAIN MEDICATION GIVEN PER EMAR. IV REMAINS PATENT. TOLERATING DIET WELL. FALL PRECAUTIONS ARE IN PLACE, CALL LIGHT WITHIN REACH.
[2021-04-19 16:20] VITALS: BP 169/70
[2021-04-19 20:48] VITALS: BP 148/72
[2021-04-20 01:37] VITALS: BP 141/56
--- NOTE | 2021-04-20 01:37 | NUR ---
ASSUMED PT CARE AT 1900.PT OBSERVED LYING ON HIS BED WITH HIS EYES CLOSED AT SHIFT CHANGE.PT HAD GAUZE PLACED UNDER HIS NOSE AFTER PROCEDURE.NO NOSE BLEED NOTED SINCE SHIFT STARTED.GAUZE FELL OFF,STILL NO BLEEDING NOTED.PT C/O ABD PAIN,MANAGED WITH MED.L SIDED WKNESS NOTED FROM PREVIOUS CVA.PT CONT ON IVF AND IV ABX.PT RESTING ON HIS BED AT THIS TIME.CALL LIGHT WITHIN REACH.
[2021-04-20 06:05] VITALS: BP 158/82
[2021-04-20 07:40] VITALS: BP 153/66
[2021-04-20 11:25] VITALS: BP 148/78
[2021-04-20 12:20] LABS: HEMATOCRIT 35.3 % (42.0-52.0); HEMOGLOBIN 11.8 gm/dL (14.0-18.0); MCH 34.6 pg (26.0-34.0); MCHC 33.5 g/dL (28.0-37.0); MCV 103.5 fL (80.0-100.0); RBC 3.41 mil/uL (4.50-6.00); WBC 11.5 thou/uL (4.0-11.0)
[2021-04-20 12:23] LABS: PLATELET COUNT 292 thou/uL (150-400)
[2021-04-20 13:42] LABS: ABSOLUTE NEUTROPHILS 10.1 thou/uL (1.4-8.2)
[2021-04-20 13:43] LABS: ANISOCYTOSIS 1+; LARGE PLATELETS FEW; MACROCYTES FEW; POLYCHROMASIA OCCASIONAL
[2021-04-20 15:56] VITALS: BP 145/75
[2021-04-20 20:06] VITALS: BP 150/75
[2021-04-21 00:19] LABS: URINE BLOOD 3+ (Negative); URINE CLARITY CLEAR; URINE COLOR YELLOW; URINE GLUCOSE-RANDOM* NEGATIVE (Negative); URINE KETONES TRACE (Negative); URINE LEUKOCYTES-REFLEX NEGATIVE (Negative); URINE NITRITE-REFLEX NEGATIVE (Negative); URINE PROTEIN (DIPSTICK) 2+ (Negative); URINE SPECIFIC GRAVITY 1.025 (1.005-1.035); URINE UROBILINOGEN 0.2 E.U./dl (0.2-1.0)
[2021-04-21 00:20] VITALS: BP 150/66
[2021-04-21 00:30] LABS: ICTOTEST (BILI CONFIRMATORY) Negative (Negative); URINE BILIRUBIN NEGATIVE (Negative)
[2021-04-21 00:31] LABS: BACTERIA-REFLEX None Seen /HPF (None Seen); CRYSTALS None Seen /LPF (None Seen); FINE GRANULAR CASTS 0-3 Few /LPF (None Seen); HYALINE CASTS 0-3 Few /LPF (None Seen); MUCUS 0-3 Light strn/LPF (None Seen); SQUAMOUS 0-3 Few /LPF (0-3); URINE RBC 3-10 Few /HPF (NONE SEEN); URINE WBC-REFLEX 0-5 Rare /HPF (0-5); WBC CASTS 0-3 Few /LPF (None Seen)
[2021-04-21 04:53] VITALS: BP 148/59
[2021-04-21 06:00] LABS: HEMATOCRIT 32.3 % (42.0-52.0); HEMOGLOBIN 10.8 gm/dL (14.0-18.0); MCH 34.5 pg (26.0-34.0); MCHC 33.4 g/dL (28.0-37.0); MCV 103.2 fL (80.0-100.0); RBC 3.13 mil/uL (4.50-6.00); RDW 14.4 % (10.5-14.5); WBC 9.5 thou/uL (4.0-11.0)
[2021-04-21 06:16] LABS: CALCIUM 7.7 mg/dL (8.5-10.1); CREATININE 1.3 mg/dL (0.7-1.3); POTASSIUM 3.6 mmol/L (3.5-5.1)
--- NOTE | 2021-04-21 07:43 | NUR ---
ASSUMED CARE OF PT AT 1900. PT ASSESSED TO BE 81M ZOX4 WITH SBO, PAIN, AND LACTIC ACIDOSIS. THROUGHOUT THE NIGHT PT RESTED IN ROOM WITH NO COMPLAINTS, VSS. Jonathan KEMP PACKED FROM NG TRAUMA, PAIN CONTROLLED WITH MORPHINE IV. AMBULATES TO THE COMMODE SBA. HAS 7 HERNIAS, MOST BEING VISIBLE ON DISTENDED FIRM ABDOMEN. VERBALIZES THAT HE HAS HAD GAS THROUGHOUT AM. WILL PASS ON TO DAY SHIFT RN.
[2021-04-21 08:25] VITALS: BP 151/80
--- NOTE | 2021-04-21 12:24 | NUR ---
Pt DID NOT HAVE SURGERY TODAY, NO IS THERE NO WORD OF IT ON EMR OR TO HIS NURSE'S KNOWLEDGE. SPOKE TO Pt WHO STATES THAT THE PLAN IS FOR HIM TO GO HOME AND THEN HAVE OP SURGERY. Pt STATES THAT HE IS GETTING AROUND WELL AND DOES NOT NEED ANY MORE P.T. PRIOR TO GOING HOME. INITIAL EVAL FROM 04/18/21 DID NOT STATE ANY FURTHER GOALS, UNLESS Pt HAD SURGERY ON WEDNESDAY. SO, WILL D/C P.T. AT THIS TIME.
--- NOTE | 2021-04-21 16:43 | NUR ---
Per surgery they were to ADAT and look at pt following up on an op basis if tolerates. GI indicated that they anticapted checking LFT's and INR in AM. PT had worked with pt and indicated that they anticpated that pt would likely be safe to return back to [place] once medically stable. Cm following regarding dc planning.
--- NOTE | 2021-04-21 17:56 | NUR ---
PT ALERT AND ORIENTED TIMES FOUR. VSS, IVF INFUSING PER ORDER. PT C/O ABD PAIN PRN PAIN MEDICATIONS CONTROLLING PAIN WELL. PT TOLERATES MEDS AND CLEAR LIQUID DIET. PT COULD NOT EAT THE REG FOOD FOR LUNCH AND DINNER. PT UP TO BSC WITH STANDBY ASSIT. PT DAUGHTER AT BEDSIDE THIS AFTERNOON. WILL CONTINUE TO MONITOR.
[2021-04-21 20:15] VITALS: BP 150/70
[2021-04-22 02:37] VITALS: BP 148/67
[2021-04-22 05:43] LABS: HEMOGLOBIN 10.6 gm/dL (14.0-18.0); MCH 34.3 pg (26.0-34.0); MCHC 33.1 g/dL (28.0-37.0); MCV 103.6 fL (80.0-100.0); RBC 3.09 mil/uL (4.50-6.00); RDW 15.2 % (10.5-14.5); WBC 12.3 thou/uL (4.0-11.0)
[2021-04-22 05:48] LABS: CALCIUM 7.5 mg/dL (8.5-10.1); CREATININE 1.3 mg/dL (0.7-1.3); POTASSIUM 3.7 mmol/L (3.5-5.1)
[2021-04-22 05:49] LABS: INR 1.87; PROTIME 19.8 Seconds (10.5-12.1)
--- NOTE | 2021-04-22 05:51 | NUR ---
Assumed pt care at 1900.A/OX4 with forgetfulness noted.VSS. C/o abd pain, medicated per EMAR around the clock with little relief reported. Denies nausea. Pt has a diffuse rash on right forearm/hand as well as edema reports it's been there for a while denies itching,no weeping;some noted on lower left hand as well. Rajani JOHNSON notified came and assessed pt,new order for Dermatology consult;elevate arm and warm compression packs and continue to monitor pt. Rhino rocket still intact on left nare,no s/sx of bleeding ENT consult called. SR on telemetry. Fall precautions in place,will continue to monitor pt.
[2021-04-22 08:00] VITALS: BP 159/69
[2021-04-22 11:00] VITALS: BP 140/67
--- NOTE | 2021-04-22 14:52 | NUR ---
CARE TEAM INDICATED THAT IT IS ANTICPATED THAT PT WILL DC TOMORROW WEDNESDAY AND GO DIRECTLY TO ENT OFFICE TO HAVE PACKING REMOVED. CM FOLLOWING REGARDING DC PLANNING.
[2021-04-22 15:20] VITALS: BP 167/70
--- NOTE | 2021-04-22 16:13 | NUR ---
Assumed pt care this am, vs stable. Diet and medications are tolerated well. Pt had generalized edema, fluids stopped and diuretics given as per MD order. Rashes noted on arm, dermatology consult called, Dr. Wadsworth called back stating if MD would like to discuss the case with hi he can be called at [phone], since case appears to be acute and can be seen as an out pt, MD informed.
[2021-04-22 17:00] VITALS: BP 147/61
[2021-04-22 19:35] VITALS: BP 142/52
[2021-04-23 00:31] VITALS: BP 154/54
--- NOTE | 2021-04-23 03:55 | NUR ---
Assumed pt care at 1900. A/OX4,VSS. C/o abd pain,medicated per EMAR with some relief reported. Denies N/V,able to eat a little food. Passing gas,small BM this shift. Rash persists on RUE,no itching,redness decreasing. SR on telemetry. Rhino rocket on left nare no s/sx bleeding noted;pt to have it taken out OP. Fall precautions in place,calls as needed for help.
[2021-04-23 05:02] VITALS: BP 152/57
[2021-04-23 05:20] LABS: HEMATOCRIT 29.8 % (42.0-52.0); HEMOGLOBIN 10.1 gm/dL (14.0-18.0); MCH 34.9 pg (26.0-34.0); MCHC 33.9 g/dL (28.0-37.0); RBC 2.89 mil/uL (4.50-6.00); RDW 14.9 % (10.5-14.5); WBC 12.8 thou/uL (4.0-11.0)
[2021-04-23 06:07] LABS: CALCIUM 7.5 mg/dL (8.5-10.1); CREATININE 1.5 mg/dL (0.7-1.3); POTASSIUM 3.6 mmol/L (3.5-5.1)
[2021-04-23 07:56] VITALS: BP 138/69
--- NOTE | 2021-04-23 08:33 | HC ---
[facility] [address] [place] [address] CONSULTATION Name: DANIEL LESTER Room #: 458-P ADM IN M.R.#: [id number] Admission: 04/16/21 Attend Phys: Baltazar Thorne MD Discharge: Date of : 44 Report #: [id number] THIS REPORT FOR: cc: Hussein Nolen MD, Nelopher MD McElhinney, Christian C. MD ~ cc: Baltazar Thorne MD DATE OF SERVICE: 04/17/2021 HISTORY OF PRESENT ILLNESS: The patient is a 81-year-old male with recent history of abdominal pain, generalized, followed by multiple episodes of nausea and vomiting. He has also reported diarrhea recently. Symptoms began on Wednesday. He lives in assisted living facility. He denies any hematemesis or blood in his stools. He was having pretty significant abdominal pain. A CT scan of the abdomen and pelvis was performed on admission showing at least partial small bowel obstruction with transition point at the level of a large complex ventral hernia containing multiple loops of small bowel and a portion of the transverse colon, indeterminate exophytic lesion arising from the right kidney. Renal ultrasound performed, normal-sized kidney, no hydronephrosis, no focal renal lesions noted on ultrasound. The patient has nasogastric tube in place. He is feeling better. He does continue to report abdominal pain, but is much improved. He actually had an episode of diarrhea earlier today and minimal flatus. He currently denies any chest pain, shortness of breath. No fevers or chills. PAST MEDICAL HISTORY: Previous history of perforated duodenal ulcer, status post surgical repair, previous small bowel obstruction. Did not require surgery. This was approximately 2 years ago. Cholelithiasis, previous cholecystectomy, CVA, history of cirrhosis, gastroesophageal reflux disease, previous history of CVA, previous food bolus, hypertension. REVIEW OF SYSTEMS: Per HPI. HOME MEDICATIONS: MiraLax, metoprolol, amlodipine, Reglan, Protonix 40 mg b.i.d., simvastatin, Carafate, metformin, glipizide. ALLERGIES: CONTRAST DYE, SHRIMP, SEAFOOD. FAMILY HISTORY: Negative for colon cancer. SOCIAL HISTORY: Used to smoke cigarettes and consume alcohol, but none at this time. PHYSICAL EXAMINATION: VITAL SIGNS: Temperature is 36.5, pulse 87, blood pressure 137/49, respiratory [facility] [address] [place] [address] CONSULTATION Name: DANIEL LESTER Room #: 458-P [facility]#: [id number] Admission: 04/16/21 Attend Phys: Baltazar Thorne MD Discharge: Date of : 44 Report #: [id number] rate is 18. GENERAL: He is alert and oriented x3, in no acute distress. HEENT: Sclerae nonicteric. Oropharynx clear. Nasogastric tube is in place. Clear aspirate is noted in the container, only a small amount is noted at this time. CARDIOVASCULAR: Regular rate. CHEST: Clear to auscultation anteriorly bilaterally. ABDOMEN: Soft. He is distended. He is mildly tender. There are obvious herniations in the midline ventral hernias. Positive bowel sounds. EXTREMITIES: No cyanosis, clubbing or edema. LABORATORY DATA: WBC is 17.4, hemoglobin 12.6, platelet count is 313. Sodium 140, potassium 4.9, chloride 106, bicarbonate 17, BUN 34, creatinine is 1.7, AST 40, ALT is 15, total bilirubin 1.0, alkaline phosphatase 109, ammonia 40, lipase is 228. INR ____. ASSESSMENT AND PLAN: 1. Small bowel obstruction, likely secondary to adhesions from previous surgery. CT is showing transition point. Agree with nasogastric suction and conservative therapy initially. Surgery is following. We will continue to follow closely. 2. History of cirrhosis, no history of bleeding. Liver function test appears stable. Hemoglobin is normal currently. 3. Gastroesophageal reflux disease. The patient has been on PPI therapy, continue. Thank you for allowing me to participate in his care. <ELECTRONICALLY SIGNED> By: Henry Ying MD 04/23/21 0833 [id number] 0220 Henry Ying MD /nt
--- NOTE | 2021-04-23 11:34 | NUR ---
HOSPITALIST INDICATED THAT PT'S HGB DROPPED YESTERDAY EVENING AND THAT HE ANTICIPATED POSSIBLE DC TOMORROW. CM FOLLOWING INDICATED WITH DC PLANNING SHOULD ANY NEEDS ARISE.
[2021-04-23 11:48] VITALS: BP 133/64
--- NOTE | 2021-04-23 13:24 | NUR ---
Nutrition: pt admitted with [id number] due to LOS. NGT is clamped. Tolerating mechanically altered chopped fiber restricted diet. Is edentulous. Fair intake of solid foods so far. Obtained preferences, would like a daily ensure. Stable weights past few years. On vitamin D and B 12 supplementation. Plan to D/C back to [facility] 04/24. Low nutrition risk.
[2021-04-23 16:21] VITALS: BP 144/67
[2021-04-23 19:27] VITALS: BP 156/70
--- NOTE | 2021-04-24 04:24 | NUR ---
ASSUMED PT CARE THIS. PT IS ALERT AND ORIENTED X4. PT HAS RHINO ROCKET IN PLACE. PT HAS RASHES ON SANDOVAL ARMS. PT IS UPX1 TO THE BSC AND USES URINAL. MEDS WERE GIVEN PER EMAR ORDERS. PAIN WAS MANAGED BY PRN PAIN MEDS. PT DID NOT VERBALIZE ANY OTHER CONCERNS. PT IS ON RA. FALL PRECAUTIONS IN PLACE. WILL CONTINUE TO MONITOR.
[2021-04-24 05:41] LABS: HEMATOCRIT 29.3 % (42.0-52.0); HEMOGLOBIN 10.1 gm/dL (14.0-18.0); MCH 35.2 pg (26.0-34.0); MCHC 34.3 g/dL (28.0-37.0); MCV 102.7 fL (80.0-100.0); RBC 2.86 mil/uL (4.50-6.00); RDW 15.2 % (10.5-14.5); WBC 11.1 thou/uL (4.0-11.0)
[2021-04-24 05:59] LABS: CALCIUM 7.8 mg/dL (8.5-10.1); CREATININE 1.4 mg/dL (0.7-1.3); MAGNESIUM 1.9 mg/dL (1.8-2.4); POTASSIUM 3.5 mmol/L (3.5-5.1)
[2021-04-24 06:00] VITALS: BP 153/65
[2021-04-24 07:16] VITALS: BP 151/69
[2021-04-24 11:27] VITALS: BP 148/79
--- NOTE | 2021-04-24 15:06 | NUR ---
CARE TEAM INDICATED THAT PT MAY BE MEDICALLY STABLE TO DC HOME TODAY OR TOMORROW. HOSPITALIST INDICATED HE HAD REACHED OUT TO ENT AND IS AWAITING A RESPONSE. CM FOLLOWING REGARDING DC PLANNING.
[2021-04-24 16:01] VITALS: BP 162/72
--- NOTE | 2021-04-24 16:33 | NUR ---
Jose Whitehead called about ENT consultation. Dr stated patient was ok to discharge and he will see the patient tomorrow in clinic and that his nurse will call them with a time to come in. pt and 's phone number given to Dr. Farrell to contact patient directly. Rhino packing is to stay in place until follow up appointment with ENT in clinic.
--- NOTE | 2021-04-24 16:51 | NUR ---
Nurse from Dr. Farrell' office called to set up appt for packing removal. pt is scheduled for 04/25/2021 at 1520. at [address] [place] [address]. [address] [place] [address]
[2021-04-24 20:00] VITALS: BP 157/78
[2021-04-25 00:37] VITALS: BP 156/81
[2021-04-25 04:00] VITALS: BP 163/76
[2021-04-25 06:58] LABS: HEMATOCRIT 30.6 % (42.0-52.0); HEMOGLOBIN 10.2 gm/dL (14.0-18.0); MCH 34.5 pg (26.0-34.0); MCHC 33.3 g/dL (28.0-37.0); MCV 103.6 fL (80.0-100.0); RBC 2.95 mil/uL (4.50-6.00); RDW 15.2 % (10.5-14.5)
[2021-04-25 07:19] LABS: CALCIUM 7.9 mg/dL (8.5-10.1); CREATININE 1.3 mg/dL (0.7-1.3); POTASSIUM 3.4 mmol/L (3.5-5.1)
[2021-04-25 07:22] VITALS: BP 151/73
--- NOTE | 2021-04-25 08:03 | NUR ---
Assumed pt care at 1900. A/OX4,VSS. C/o abd pain,denies N/V,medicated per EMAR with some relief reported. C/o loose stools X3,held HS Miralax. SR on telemetry. Edema on BLE 2+ encouraged to keep extremities elevated. Voiding per urinal. Pt looking forward to dc today.
[2021-04-25] MEDS ORDERED: VITAMIN D21250 MCG PO (11:04)
[2021-04-25] MEDS ORDERED: AUGMENTIN 875-1 EACH PO (11:04)
[2021-04-25] MEDS ORDERED: MIRALAX17 GM PO (11:04)
[2021-04-25] MEDS ORDERED: VITAMIN B-12500 MCG PO (11:04)
[2021-04-25 11:15] VITALS: BP 144/73
[2021-04-25 12:39] VITALS: BP 144/73
--- NOTE | 2021-04-25 15:29 | NUR ---
PLEASE CONTACT CLAIRE SHERIDAN, WITH FOLLOW UP WITH HERNIA REPAIR AT [phone].
--- NOTE | 2021-04-25 15:59 | NUR ---
CARE TEAM INDICATED THAT PT IS MEDICALLY STABLE TO DC BACK TO [facility] THIS DAY. CM HAD SPOKE WIHT PT'S DTR AND SHE WOULD LIKE REFERRAL SENT TO [facility] THEY ARE SEEING HIS NOW. THEY CAN ACCEPT PT AND WILL DO A SOC WEDNESDAY. DTR TOOK PT TO ENT OFFICE TO ADDRESS THE PACKING IN HIS NOSE DR. STAUFFER IN OP AT 1520. CM FAXED ORDERS AND CLINICAL TO OSKAR AT [facility] AND [facility]. NO OTHER CM INTERVENTION INDICATED. CASE CLOSED.
== END 2021-04-25 15:30 | disposition home health service (06) | DRG 871 ==
LOC: ER 13:50 → EROBS 18:56 → 4W 18:56
PROVIDERS: Internal Medicine; Nurse Practitioner; Nurse Practitioner Family; Physician Assistant; ADMIT Hospitalist; ATTEND Hospitalist
PROC: 0D9670Z Drainage of Stomach with Drainage Device, Via Natural or Artificial Opening (ICD-10-PCS; principal; 2021-04-16)
DX: A41.9 Sepsis, unspecified organism (principal); N17.0 Acute kidney failure with tubular necrosis; K56.50 Intestinal adhesions [bands], unspecified as to partial versus complete obstruction; E46 Unspecified protein-calorie malnutrition; I69.354 Hemiplegia and hemiparesis following cerebral infarction affecting left non-dominant side; K21.9 Gastro-esophageal reflux disease without esophagitis; E78.5 Hyperlipidemia, unspecified; R53.81 Other malaise; K59.00 Constipation, unspecified; D53.9 Nutritional anemia, unspecified; I12.9 Hypertensive chronic kidney disease with stage 1 through stage 4 chronic kidney disease, or unspecified chronic kidney disease; R04.0 Epistaxis; N18.9 Chronic kidney disease, unspecified; E11.22 Type 2 diabetes mellitus with diabetic chronic kidney disease; E55.9 Vitamin D deficiency, unspecified; K70.30 Alcoholic cirrhosis of liver without ascites; K75.81 Nonalcoholic steatohepatitis (NASH); K43.9 Ventral hernia without obstruction or gangrene; E66.9 Obesity, unspecified; Z68.35 Body mass index [BMI] 35.0-35.9, adult; Z90.49 Acquired absence of other specified parts of digestive tract; Z87.11 Personal history of peptic ulcer disease; Z88.8 Allergy status to other drugs, medicaments and biological substances; Z91.041 Radiographic dye allergy status; Z91.013 Allergy to seafood; Z87.891 Personal history of nicotine dependence; Z90.3 Acquired absence of stomach [part of]; Z84.89 Family history of other specified conditions
CPT/HCPCS: 10045

== ENCOUNTER 2021-05-02 19:13 | Emergency (ER) | payer OTHER ==
[~2021-05-02] VITALS: Ht 167.6 cm; Wt 104.3 kg
--- NOTE | ~2021-05-02 | EMS ---
[facility] [address] [place] [address] EMS Patient Care Report Name: DANIEL LESTER Room #: REG CARLY De Los Santos#: [id number] Admission: 05/02/21 Attend Phys: Discharge: Date of : 42 Report #: [id number] THIS REPORT FOR: //name// Report Transmitted: 05/02/2021 19:51 EMS Care Summary [facility] MED-ACT Incident [id number] @ 05/02/2021 18:18 Incident Location [address] [place] [address] Patient DANIEL LESTRE Male, 81 Years 1940 Patient Address [address] [place] [address] Patient History Diabetes,Hypertension (HTN),Hyperlipidemia,Cholecystectomy,Hernia (Abdominal), Patient Allergies Intravenous Dye, Patient Medications Tradjenta, Lisinopril, Metformin, Amlodipine, Glipizide, Loperamide, Simvastatin, Chief Complaint Shortness of breath with exertion/laying flat in b Disposition Transported No Lights/[place] Dispatch Reason Breathing Problem Transported To [facility] Narrative Staff member at [facility] stated she activated 911 after [facility] [address] [place] [address] EMS Patient Care Report Name: DANIEL LESTER Room #: REG Magali#: [id number] Admission: 05/02/21 Attend Phys: Discharge: Date of : 42 Report #: [id number] she found the patient to have an SaO2 of 86% on room air while doing her evening vitals checks. Staff member stated the patient did not appear to be in respiratory distress but after contacting the facility's physician, it was decided to activate 911 and have the patient transported to the ER for further evaluation. Q33 reports that they arrived on scene to find the patient sitting up in his recliner chair, in no obvious distress and denying having any complaints. Q33 reports that the patient had an SaO2 of 96% on room air and that the patient's lung sounds were clear and equal bilaterally. Q33 initially asked [id number] to stand by because "the patient stated he doesn't want to go to the ER and the staff is calling the physician back." Patient denied chest pain/pressure/discomfort. While waiting for the physician to call back, Lt Bonilla heard the patient and Q33 talking about "all the swelling" in the patient's lower extremities. Lt Bonilla overheard the patient admit to Q33 that he had been becoming increasingly short of breath over the last week every time he exerts himself. Lt Bonilla made contact with the patient and could see that the patient's hands and lower extremities were grossly tight and swollen. Lt Bonilla asked the patient his permission to evaluate him and the patient agreed. Patient was a/o x 4. GCS 15. No acute respiratory distress was noted. Patient was able to speak in complete sentences. Patient's skin was warm, dry and noted to be tight to his lower legs and feet and to both hands due to swelling. Patient's radial pulse was strong and regular. Q33 assisted [facility] in obtaining a 4 lead ECG and a 12 lead (Sinus Rhythm). Lt Bonilla asked the patient if he had ever been diagnosed with CHF. Patient denied a PMHX of CHF and stated the swelling only started after coming home from an 11 day stay at [facility] (from 04/16/21-04/25/21) for what sounded like an intestinal blockage that required the patient have an NG tube for several days. Patient stated that since being discharged 7 days ago, he has become increasingly short of breath with exertion and has had to start sleeping in his recliner chair at night. Lt Bonilla strongly encouraged the patient to be further evaluated at the ER by a physician and offered the patient ambulance transport. The patient and his both decided it would be a good idea and the patient consented to transport. Patient was assisted from his recliner chair and helped to pivot to the stretcher. Patient was placed in a semi-fowlers position, was secured with seat belts and moved to the MICU. Monitored the patient's vitals and ECG. Patient's bG was found to be 68mg/dL via finger stick. Patient admitted that he had not been eating well since having trouble with his intestinal blockage at the beginning of April. Lt Bonilla attempted to find a sight to establish an IV but was unsuccessful due to the edema in the patient's hands and arms. Patient's abdomen appeared to be distended and tight. Patient was also noted to have very pronounced hernias around and just above his navel. Upon arrival at [facility] ER, the patient was taken to ER #6 and moved via draw sheet to the ER bed by [facility] and ER staff. Report, paperwork and 12 lead TOT the ER [facility] [address] [place] [address] EMS Patient Care Report Name: DANIEL LESTER Room #: REG [facility]#: [id number] Admission: 05/02/21 Attend Phys: Discharge: Date of : 42 Report #: [id number] nurse at the patient's bedside. [facility] also informed the patient's ER nurse about his bG of 68mg/dL. Initial Vitals @18:59P: 81,R: 18,Pain: 0/10,GCS: 15,SpO2: 100,WV Suspected: false @18:49P: 47,R: 18,Pain: 0/10,GCS: 15,SpO2: 98,WV Suspected: false @18:51P: 75,R: 18,Pain: 0/10,GCS: 15,SpO2: 99,WV Suspected: false @19:06P: 75,R: 18,Pain: 0/10,GCS: 15,SpO2: 98,WV Suspected: false @19:01P: 77,R: 18,BP: 155/66,Pain: 0/10,GCS: 15,SpO2: 98,Revised Trauma: 12, @19:09P: 76,R: 18,BP: 148/65,Pain: 0/10,GCS: 15,SpO2: 98,Revised Trauma: 12, @18:55P: 77,R: 18,Pain: 0/10,GCS: 15,SpO2: 99,WV Suspected: false @PTAP: 91,R: 18,BP: 151/73,Pain: 0/10,GCS: 15,SpO2: 96,Revised Trauma: 12, @18:38P: 92,R: 18,Pain: 0/10,GCS: 15,WV Suspected: false @18:49P: 93,R: 18,BP: 130/71,Pain: 0/10,GCS: 15,Temp: 98F,SpO2: 98,Revised Trauma: 12, Impression Shortness of breath Procedures @18:51 12-Lead ECG Response: UnchangedSucceeded @18:29 ALS Assessment Response: UnchangedSucceeded @18:38 12-Lead ECG Response: UnchangedSucceeded @18:50 Surgical Mask on Patient Response: Unchanged Timeline DISPLAY DECORATOR,BP: 151/73 M,PULSE: 91,RR: 18 R,SPO2: 96 Ox,ETCO2: ,BG: ,PAIN: 0,GCS: 15, 18:17,Call Received 18:17,Psap Call 18:18,Dispatched 18:19,En Route 18:25,On Scene 18:27,At Patient 18:29,ALS Assessment,Response: UnchangedSucceeded, 18:38,12-Lead ECG,Response: UnchangedSucceeded, 18:38,BP: / M,PULSE: 92,RR: 18 R,SPO2: Ox,ETCO2: ,BG: ,PAIN: 0,GCS: 15, 18:49,BP: 130/71 M,PULSE: 93,RR: 18 R,SPO2: 98 Ox,ETCO2: ,BG: ,PAIN: 0,GCS: 15, 18:49,BP: / M,PULSE: 47,RR: 18 R,SPO2: 98 Ox,ETCO2: ,BG: ,PAIN: 0,GCS: 15, 18:50,Surgical Mask on Patient,Response: Unchanged 18:51,12-Lead ECG,Response: UnchangedSucceeded, 18:51,BP: / M,PULSE: 75,RR: 18 R,SPO2: 99 Ox,ETCO2: ,BG: ,PAIN: 0,GCS: 15, 18:53,Depart Scene 18:55,BP: / M,PULSE: 77,RR: 18 R,SPO2: 99 Ox,ETCO2: ,BG: ,PAIN: 0,GCS: 15, 18:59,BP: / M,PULSE: 81,RR: 18 R,SPO2: 100 Ox,ETCO2: ,BG: ,PAIN: 0,GCS: 15, [facility] [address] [place] [address] EMS Patient Care Report Name: DANIEL LESTER Room #: REG ER MStephanieR.#: [id number] Admission: 05/02/21 Attend Phys: Discharge: Date of : 42 Report #: [id number] 19:01,BP: 155/66 M,PULSE: 77,RR: 18 R,SPO2: 98 Ox,ETCO2: ,BG: ,PAIN: 0,GCS: 15, 19:06,BP: / M,PULSE: 75,RR: 18 R,SPO2: 98 Ox,ETCO2: ,BG: ,PAIN: 0,GCS: 15, 19:09,BP: 148/65 M,PULSE: 76,RR: 18 R,SPO2: 98 Ox,ETCO2: ,BG: ,PAIN: 0,GCS: 15, 19:10,At Destination 19:29,Call Closed Disclaimer v1.1 Copyright 2020 [employer] This EMS Care Summary contains data elements from the applicable legal record (which may be displayed differently). It is designed to provide pertinent information for the following purposes: continuity of care, clinical quality, and state data reporting. The complete legal record is available to ED staff and administrators of the receiving hospital in [employer] Patient Tracker. All data is provided "as is."
[~2021-05-02 19:13] MED LIST changes: +AUGMENTIN 875-1 EACH PO; +METFORMIN HCL500 M3 PO; +VITAMIN B-12500 MCG PO; +VITAMIN D21250 MCG PO
[2021-05-02] MEDS ORDERED: GLIPIZIDE 10 MG10 MG PO (19:25)
[2021-05-02] MEDS ORDERED: BENTYL 10 MG CA10 MG PO (19:26)
[2021-05-02] MEDS ORDERED: LISINOPRIL5 MG PO (19:26)
[2021-05-02] MEDS ORDERED: TRADJENTA5 MG (19:26)
[2021-05-02] MEDS ORDERED: LINZESS145 MCG PO (19:28)
[2021-05-02 20:30] LABS: ABSOLUTE NEUTROPHILS 4.5 thou/uL (1.4-8.2); EOSINOPHILS 4.3 % (0.0-3.0); HEMATOCRIT 29.8 % (42.0-52.0); HEMOGLOBIN 9.9 gm/dL (14.0-18.0); LYMPHOCYTES 18.7 % (24.0-44.0); MCH 34.6 pg (26.0-34.0); MCHC 33.3 g/dL (28.0-37.0); MCV 103.8 fL (80.0-100.0); MONOCYTES 12.6 % (1.0-8.0); PLATELET COUNT 257 thou/uL (150-400); POLYS 63.4 % (36.0-66.0); RBC 2.87 mil/uL (4.50-6.00); RDW 16.5 % (10.5-14.5); WBC 7.2 thou/uL (4.0-11.0)
[2021-05-02 20:43] LABS: INR 1.99
[2021-05-02 20:44] LABS: CALCIUM 8.2 mg/dL (8.5-10.1); CREATININE 1.7 mg/dL (0.7-1.3); POTASSIUM 4.7 mmol/L (3.5-5.1)
[2021-05-02 20:54] LABS: ALBUMIN 2.1 g/dL (3.4-5.0); DIRECT BILIRUBIN 0.3 mg/dL (<0.1-0.2); TOTAL BILIRUBIN 0.8 mg/dL (0.2-1.0); TOTAL PROTEIN 6.2 g/dL (6.4-8.2)
[2021-05-02 21:59] VITALS: BP 115/74
== END 2021-05-02 22:00 | disposition home or self-care (01) ==
LOC: ER 19:13
PROVIDERS: Student in an Organized Health Care Education/Training Program
DX: R60.0 Localized edema (principal); K21.9 Gastro-esophageal reflux disease without esophagitis; I10 Essential (primary) hypertension; E78.5 Hyperlipidemia, unspecified; Z91.041 Radiographic dye allergy status; Z90.49 Acquired absence of other specified parts of digestive tract; Z91.013 Allergy to seafood; Z87.891 Personal history of nicotine dependence

== ENCOUNTER 2021-05-15 07:42 | Inpatient (IN) | payer OTHER ==
[~2021-05-15] VITALS: Ht 167.6 cm; Wt 115.2 kg
--- NOTE | ~2021-05-15 | HC ---
[facility] [address] [place] [address] CONSULTATION Name: DANIEL LESTER Room #: 240-P ADM IN M.R.#: [id number] Admission: 05/15/21 Attend Phys: Barb Trevino MD Discharge: Date of : 42 Report #: [id number] THIS REPORT FOR: cc: Hussein Nolen MD, Nelopher MD Stephens, Thad A. MD ~ DATE OF SERVICE: 05/16/2021 WOUND CARE CONSULTATION PERSONAL PHYSICIAN: None on staff. CHIEF COMPLAINT: Gluteal ulcer. HISTORY OF PRESENT ILLNESS: This is a 81-year-old white male with a known history of diabetes and CVA with persistent left-sided weakness, who was admitted from his long-term care facility for significant hypoglycemia. Upon admission, the patient was noted to have a gluteal ulcer. We have been asked to follow this ulcer as well. The patient also of note, has been having a diffuse maculopapular rash of unknown etiology. The patient states that over the past several days, he has been having extremely loose stools with significant irritation and excoriation in his gluteal region, which is where he feels the ulceration started on his gluteal region. The patient states he has not been bedridden and does not feel this is from pressure. The patient denies any other associated wounds, but does complain of the rash being very pruritic. PAST MEDICAL HISTORY: Perforated duodenal ulcer, previous CVA with left sided weakness, peptic ulcer disease, recent maculopapular rash of unknown etiology. CURRENT MEDICATIONS: Multiple, I reviewed the patient's medication list. DRUG ALLERGIES: SEAFOOD, SHRIMP, AND CONTRAST DYE. SOCIAL HISTORY: The patient is a former smoker, quit greater than a year ago, has a history of alcohol use in the past but not recently. Lives with his family. FAMILY HISTORY: Not pertinent to current medical condition. REVIEW OF SYSTEMS: CONSTITUTIONAL: The patient denies fevers or chills. NEUROLOGIC: The patient complains of overall generalized weakness, but no isolated weakness in arms or legs. EYES: No complaints. EARS, NOSE AND THROAT: No complaints. CARDIAC: The patient complains of mild peripheral edema, but no chest pain or [address] [address] CONSULTATION Name: DANIEL LESTER Room #: [address] [place] [address] IN ..#: [id number] Admission: 05/15/21 Attend Phys: Barb Trevino MD Discharge: Date of : 42 Report #: [id number] palpitation. RESPIRATORY: The patient denies shortness of breath, cough, or wheezes. GASTROINTESTINAL: The patient denies nausea, vomiting, or abdominal pain. GENITOURINARY: The patient denies urgency or frequency. MUSCULOSKELETAL: No complaints. SKIN: The patient has a maculopapular rash which is generalized as well as an unstageable ulceration on his right buttock. PHYSICAL EXAMINATION: VITAL SIGNS: Temperature 36.7, pulse 87, respirations 20, BP 127/49. GENERAL: This is alert and oriented x 3, pleasant white male who is in mild distress secondary to his pruritic rash as well as the pain in his gluteal region. HEENT: Normocephalic, atraumatic. Mucous membranes dry. Pupils are round. Sclerae white. NECK: Without JVD. LUNGS: Clear. HEART: Regular. ABDOMEN: Soft, nontender. EXTREMITIES: The patient moves all extremities without difficulty. Bilateral heels were intact. Distal pulses are intact. Evaluation of gluteal region reveals an ulcer on right buttock of unknown etiology, but with 100% slough covered. Periwound surrounded with mild excoriation. NEUROLOGIC: Cranial nerves II-XII are grossly intact. Motor and sensory are grossly intact. SKIN: The patient has a maculopapular rash which is generalized. LABORATORY DATA: White count 7.9, hemoglobin 8.4, BUN 46, creatinine 3.5, albumin 2.1. IMPRESSION: 1. Ulcer to the right buttock, unknown etiology, but does not appear to be pressure related: 2. Diffuse maculopapular rash of unknown etiology. 3. History of critical hypoglycemia. 4. History of hypertension. 5. History of anasarca. 6. Acute renal failure. 7. Cirrhosis of the liver. 8. Severe protein-calorie malnutrition with albumin 2.1. PLAN: Because the patient complains of pain in the ulcer of the buttock, we will start morphine, Silvadene cream, Xeroform, and bordered foam to the area twice daily and p.r.n. Want the patient turned every 2 hours and p.r.n. We will put him on low air loss surface. We will start AmLactin lotion daily to [facility] [address] [place] [address] CONSULTATION Name: DANIEL LESTER Room #: 240-P ADM IN M.R.#: [id number] Admission: 05/15/21 Attend Phys: Barb Trevino MD Discharge: Date of : 42 Report #: [id number] his rash. Nephrology is following the patient for renal failure. We will make sure we maximize the patient's oral supplementation for protein nutrition for healing. We will continue all other current medications and we will continue to follow the patient. By: [id number] Carlos Gloria MD /nt
[~2021-05-15 07:42] MED LIST changes: +BENTYL 10 MG CA10 MG PO; +LINZESS145 MCG PO; +LISINOPRIL5 MG PO; +PROTONIX40 M2 PO; +TRADJENTA5 MG PO
[2021-05-15 07:45] VITALS: BP 160/70
[2021-05-15 08:08] LABS: ALBUMIN 2.3 g/dL (3.4-5.0); CREATININE 3.2 mg/dL (0.7-1.3); TOTAL BILIRUBIN 0.4 mg/dL (0.2-1.0); TOTAL PROTEIN 6.9 g/dL (6.4-8.2)
[2021-05-15 08:16] LABS: POTASSIUM 4.4 mmol/L (3.5-5.1)
[2021-05-15 08:31] LABS: ABSOLUTE NEUTROPHILS 8.8 thou/uL (1.4-8.2); BASOPHILS 0.3 % (0.0-2.0); EOSINOPHILS 1.3 % (0.0-3.0); HEMOGLOBIN 9.6 gm/dL (14.0-18.0); LYMPHOCYTES 8.3 % (24.0-44.0); MCH 34.8 pg (26.0-34.0); MCHC 33.1 g/dL (28.0-37.0); MCV 105.2 fL (80.0-100.0); MONOCYTES 9.3 % (1.0-8.0); PLATELET COUNT 214 thou/uL (150-400); POLYS 80.8 % (36.0-66.0); RBC 2.76 mil/uL (4.50-6.00); RDW 16.8 % (10.5-14.5); WBC 10.9 thou/uL (4.0-11.0)
[2021-05-15 08:54] LABS: CALCIUM 7.7 mg/dL (8.5-10.1); CREATININE 3.3 mg/dL (0.7-1.3)
[2021-05-15 11:13] LABS: FOLIC ACID 7.5 ng/mL (8.6-58.9)
[2021-05-15 11:14] LABS: URINE BILIRUBIN NEGATIVE (Negative); URINE BLOOD 3+ (Negative); URINE CLARITY CLOUDY; URINE COLOR YELLOW; URINE GLUCOSE-RANDOM* NEGATIVE (Negative); URINE KETONES NEGATIVE (Negative); URINE LEUKOCYTES NEGATIVE (Negative); URINE NITRITE NEGATIVE (Negative); URINE PROTEIN (DIPSTICK) 3+ (Negative); URINE SPECIFIC GRAVITY 1.025 (1.005-1.035); URINE UROBILINOGEN 0.2 E.U./dl (0.2-1.0)
[2021-05-15 11:38] LABS: PROT/CREAT RATIO 2.8; URINE CREATININE-RANDOM* 149.2 mg/dL
[2021-05-15 11:59] LABS: SQUAMOUS 0-3 Few /LPF (0-3); URINE RBC >20 Many /HPF (NONE SEEN)
[2021-05-15 12:00] LABS: BACTERIA 1-9 Few /HPF (None Seen); CASTS None Seen /LPF (None Seen); CRYSTALS None Seen /LPF (None Seen); URINE WBC 6-15 Few /HPF (NONE SEEN)
[2021-05-15 17:07] VITALS: BP 147/59
[2021-05-15 21:31] VITALS: BP 142/64
[2021-05-15 21:58] VITALS: BP 142/64
[2021-05-16] VITALS (7 sets, daily range): BP systolic 122–135; BP diastolic 48–66
[2021-05-16 00:06] LABS: GLYCOHEMOGLOBIN (HGB A1C) 4.8 % (4.8-5.6)
--- NOTE | 2021-05-16 06:28 | NUR ---
PT ARRIVED ON THE UNIT AT 2200 FROM ED. VSS, AFEBRILE. SR WITH PVC'S PER MONITOR. PT WAS ALERT AND ORIENT TIMES FOUR AT THE BEGINNING OF THE SHIFT BUT BY 0300 PT WAS CONFUSED AND THINKING THAT HE SAW THE FIREMEN OUTSIDE OF HIS WINDOW, CLIMBING THE LADDER THROUGH THE TREES ONTO THE ROOF TOP. PT WAS REORIENT AND WAS SHOWN THAT THE BLINDS WERE NOT OPENED. THERE WAS A LOT OF REFLECTIONS GOING ON AT THE TIME. PT INSIST THAT HE SAW FIREMEN. PIC TAKEN OF RIGHT BUTTOCK ULCER AND PLACED OIN CHART. LOTS OF RASH ON UPPER EXTREMITIES NOTED. PLEASANT AND VERY COOPERATIVE. WILL CONTINUE TO MONITOR.
[2021-05-16 09:30] LABS: BASOPHILS 0.1 % (0.0-2.0); HEMATOCRIT 25.7 % (42.0-52.0); HEMOGLOBIN 8.4 gm/dL (14.0-18.0); LYMPHOCYTES 5.4 % (24.0-44.0); MCH 34.8 pg (26.0-34.0); MCHC 32.7 g/dL (28.0-37.0); MCV 106.2 fL (80.0-100.0); MONOCYTES 5.5 % (1.0-8.0); PLATELET COUNT 194 thou/uL (150-400); RBC 2.42 mil/uL (4.50-6.00); WBC 7.9 thou/uL (4.0-11.0)
[2021-05-16 09:42] LABS: ALBUMIN 2.1 g/dL (3.4-5.0); CALCIUM 7.7 mg/dL (8.5-10.1); CREATININE 3.5 mg/dL (0.7-1.3); MAGNESIUM 1.7 mg/dL (1.8-2.4); PHOSPHORUS 4.4 mg/dL (2.6-4.7); POTASSIUM 4.6 mmol/L (3.5-5.1)
[2021-05-16 12:07] LABS: URINE OSMOLALITY* 401 (())
[2021-05-16] MEDS ORDERED: LIDOCAINE VISC100 ML SW&SWALLOW (14:02)
[2021-05-16] MEDS ORDERED: APHEN325 M1 PO (14:04)
[2021-05-16] MEDS ORDERED: AUGMENTIN 875-1 EACH PO (14:04)
[2021-05-16] MEDS ORDERED: LASIX 40 MG TAB40 MG PO (14:05)
[2021-05-16] MEDS ORDERED: MIRALAX17 G1 PO (14:06)
[2021-05-16 14:07] LABS: UREA NITROGEN-RANDM URINE 590 mg/dL (Not Estab.)
[2021-05-16] MEDS ORDERED: SPIRONOLACTONE50 MG PO (14:07)
[2021-05-16] MEDS ORDERED: BACITRACIN ZINC28 GM TOP (14:09)
[2021-05-16] MEDS ORDERED: LOPERAMIDE2 MG PO (14:10)
[2021-05-16] MEDS ORDERED: GERI-LANTA LIQ355 M1 PO (14:10)
[2021-05-16] MEDS ORDERED: MILK OF MA400 MG/5 M PO (14:11)
[2021-05-16] MEDS ORDERED: AFRIN15 M1 NASAL (14:12)
[2021-05-16] MEDS ORDERED: AAA-MED REC COMPLETE PO (14:15)
--- NOTE | 2021-05-16 16:42 | NUR ---
Pt is a&ox3 and lives in the swapna at [facility] with his . Clinical update faxed to Sidra at the [facility] and message left for her that the pt may be dc'd this weekend. Pt has recently been dc'd in April with HH per [facility]. Referral faxed to them as well to restart services and their oncall notified of possible weekend dc. Unit RN to call [facility] and the dtr this weekend of dc ready. Pt's dc instructions and summary will need to be faxed to both the facility and the HH agency. The pt uses a rwalker at home. Dtr may be able to transport back to his nursing home apt or unit rn can call [facility] to take if she is not able [phone]. [facility] [phone], fax [phone] [facility] [phone], fax [phone]
[2021-05-16 21:06] LABS: COMPLEMENT-C3 94 mg/dL (82-167); COMPLEMENT-C4 14 mg/dL (12-38)
--- NOTE | 2021-05-16 21:28 | NUR ---
PT IS AXOX4, FORGETFUL, PLEASANT; VSS, AFEBRILE, SR ON THE MONITOR. PT HAS BLE EDEMA 2+ R/T FVE. DR CONWAY CONSULTED, NEPHRO CONSULTED. FVE PROTOCOL INTIATED WITH IV LASIX AND IV ALBUMIN. PT CONTINUES TO BE WHEEZY AND COARSE WHILE RESTING IN BED; PT HAS POOR BODY POSITIONING AND MVMT IN BED, DIFFICULTY AND UNABLE TO REMAIN SITTING COMPLETELY UPRIGHT. PT/OT CONSULTED, PT ABLE TO MOVE SLOWLY WITH WALKER AND GB. ST CONSULTED; PT TO REMAIN ON PUREED DIET WITH HONEY THICK LIQUIDS. POC IS TO CONTINUE TO FVE PROTOCOL, MONITOR BLOOD SUGARS. FALL PRECAUTIONS IN PLACE. NO CONCERNS AT THIS TIME.
--- NOTE | 2021-05-16 23:02 | NUR ---
AT THE BEGINNING OF SHIFT PATIENT SOUNDED VERY COARSE AND WHEEZY. SPOKE TO NEPHROLOGY ABOUT ORDERED ALBUMIN AND WAS GIVEN A ONE TIME ORDER FOR LASIX. SINCE PATIENT HAS DEVELOPED PRONOUNCED HEMEOPTYSIS. HAVE NOTIFIED PROVIDER AND SHE IS COMING TO SEE PATIENT SHORTLY. NURSE TO CONTINUE TO EVALUATE.
[2021-05-17] VITALS (49 sets, daily range): BP systolic 73–137; BP diastolic 40–71
[2021-05-17 01:06] LABS: HEPATITIS B SURFACE AG Negative (Negative); HEPATITIS C VIRUS AB <0.1 (0.0-0.9)
[2021-05-17 01:14] LABS: HEMATOCRIT 26.4 % (42.0-52.0); HEMOGLOBIN 8.6 gm/dL (14.0-18.0); MCH 34.2 pg (26.0-34.0); MCHC 32.5 g/dL (28.0-37.0); MCV 105.3 fL (80.0-100.0); RBC 2.51 mil/uL (4.50-6.00); RDW 16.5 % (10.5-14.5); WBC 15.8 thou/uL (4.0-11.0)
[2021-05-17 01:22] LABS: CALCIUM 7.6 mg/dL (8.5-10.1); CREATININE 3.4 mg/dL (0.7-1.3); POTASSIUM 4.5 mmol/L (3.5-5.1)
[2021-05-17 01:26] LABS: ALBUMIN 2.7 g/dL (3.4-5.0); PHOSPHORUS 4.9 mg/dL (2.5-4.9)
[2021-05-17 01:30] LABS: INR 2.25; PROTIME 23.6 Seconds (10.5-12.1)
[2021-05-17 04:15] LABS: HCO3 14.2 mmol/L (22.0-26.0); PCO2 29.4 mmHg (35.0-45.0); PO2 101.1 mmHg (80.0-100.0); sO2 97.2 % (92.0-98.0)
[2021-05-17 04:16] LABS: pH 7.302 (7.360-7.450)
[2021-05-17 11:01] LABS: BE(vivo) -10.4 mmol/L (-2 to +3); HCO3 15.2 mmol/L (22.0-26.0); PCO2 32.3 mmHg (35.0-45.0); PO2 83.5 mmHg (80.0-100.0); sO2 95.3 % (92.0-98.0)
--- NOTE | 2021-05-17 13:28 | NUR ---
A #6F TRIPLE LUMEN CENTRAL LINE WAS PLACED PER HOSPITAL POLICY AFTER A BEDSIDE TIMEOUT WAS COMPLETED. A STAT CHEST XRAY CONFIRMED THE LINE IN THE SVC AND RELEASED FOR USE
[2021-05-17 19:30] LABS: BE(vivo) -14.8 mmol/L (-2 to +3); HCO3 13.1 mmol/L (22.0-26.0); PCO2 38.5 mmHg (35.0-45.0); PO2 81.5 mmHg (80.0-100.0); sO2 92.7 % (92.0-98.0)
--- NOTE | 2021-05-17 19:32 | NUR ---
INTUBATED AT 1740. DR. AGUIRRE IN THE ROOM. LEVOPHED, FENTANYL, DOPAMINE GTTS STARTED. PT ON PROPOFOL FOR 15 MINUTES BUT IT WAS TURNED OFF DUE TO LOW BP'S. DOPAMINE STARTED DUE TO SB.
--- NOTE | 2021-05-17 19:45 | NUR ---
CRITICAL ABG VALUE CALLED TO DR. AGUIRRE AT 1935 WITH ORDERS RECEIVED AND GIVEN.
--- NOTE | 2021-05-17 20:22 | NUR ---
RN ASSUMED PT'S CARE AT 1500-1900PM,PT WAS IN BIPAP WITH O2 90%,PT IS UNRESPONSIVE ,PT'S RR IS 24-27,PT'S O2SAT STAYS AT 90-94%,BUT PT IS DE-SAT WITH ACTIVITIES , PULMONOLOGY HAS RE-ASSESSED THIS PT, PT HAS INTUBATION PT PULMONOLOGY DR ABOUT 1740PM, PT IS ON BOTH WRIST RESTRAINT AND SEDATION AND BP MEDICATIONS, PT'S FAMILY STAY AT PT'S BEDSIDE .
[2021-05-17 21:53] LABS: BF NUCLEATED CELLS 847 /mm3; BF RBC 19037 /mm3
[2021-05-17 21:55] LABS: TOTAL VOLUME 70 mL
[2021-05-17 21:56] LABS: CLARITY CLOUDY; COLOR RED
[2021-05-17 22:56] LABS: BF MACROPHAGE 0 %; BF NEUTROPHILS 95 %
--- NOTE | 2021-05-17 23:21 | NUR ---
CALLED DR. AGUIRRE AT 2250 TO UPDATE ON PATIENT STATUS. PT URINE DARK RED IN COLOR ONLY 40 ML OUTPUT CHARTED SINCE START OF SHIFT. PT INTUBATED/SEDATED, EDEMATOUS IN UPPER/LOWER EXTREMITIES, BP 130/52, 02 SAT 100%, HR 90s. GIVEN 40 MG IVP LASIX ONETIME AT 1800, SCHED 80 MG IVP LASIX AT 2155, AND SCHED IVPB ALBUMIN 25 GM/100 ML. NO ORDERS RECEIVED.
[2021-05-18] VITALS (95 sets, daily range): BP systolic 83–139; BP diastolic 39–64
--- NOTE | 2021-05-18 00:12 | NUR ---
PT EXTREMITIES COOL TO TOUCH, TROUBLE OBTAINING TEMPERATURE READING, STARTED HERRERA HUGGER TO REWARM PATIENT. WILL RECHECK TEMP HOURLY UNTIL 97.1 F OR ABOVE.
--- NOTE | 2021-05-18 04:58 | HC ---
[facility] [address] [place] [address] CONSULTATION Name: DANIEL LESTER Room #: 240-P ADM IN M.R.#: [id number] Admission: 05/15/21 Attend Phys: Barb Trevino MD Discharge: Date of : 42 Report #: [id number] THIS REPORT FOR: cc: Hussein Nolen MD, Nelopher MD Barry,Shiraz Velez MD ~ DATE OF SERVICE: 05/17/2021 INFECTIOUS DISEASE CONSULTATION ATTENDING PHYSICIAN: Dr. Trevino. REASON FOR EVALUATION: Severe pneumonitis complicated by respiratory failure with progressive encephalopathy, also has an ill-defined fairly widespread rash, onset since April of this year. HISTORY OF PRESENT ILLNESS: Chart reviewed. The patient examined. I did speak with the daughter. He is unable to respond, apparently has been ill back several weeks, was hospitalized in early April, was felt to have bowel obstruction. It is notable he has multiple hernias. This was dealt with conservatively. He does live in a facility, apparently was residing there, was found to be profoundly hypoglycemic with confirmed blood sugar of 29. This was corrected; however, he had persistent issues with hypoglycemia. Initial evaluation noted acute renal failure as well, mildly elevated lipase. Ochiltree test was negative. Coronavirus testing was negative as well. X-ray showed perihilar infiltrates that have progressed, now has widespread infiltrates, complicated by respiratory failure, now on BiPAP. Additional history includes end-stage liver disease. He has been afebrile. ALLERGIES: CONTRAST DYE. CURRENT MEDICATIONS: Include lactulose, vancomycin, rifaximin, furosemide, cefepime, folic acid, pantoprazole, atorvastatin, metoprolol, ipratropium, albuterol inhaler, methylprednisolone. PAST MEDICAL HISTORY: As described above, diabetes mellitus, previous history of stroke with left-sided weakness, does ambulate with a walker, history of gallstone pancreatitis, end-stage liver disease with cirrhosis, severe peptic ulcer disease, reflux, hypertension, history of ethanol use. SOCIAL HISTORY: Former smoker. No illicit drug use. FAMILY HISTORY: Noncontributory. REVIEW OF SYSTEMS: Unobtainable. [facility] [address] [place] [address] CONSULTATION Name: DANIEL LESTER Room #: 240-P [facility] IN .R.#: [id number] Admission: 05/15/21 Attend Phys: Barb Trevino MD Discharge: Date of : 42 Report #: [id number] PHYSICAL EXAMINATION: GENERAL: He appears chronically ill. He is in moderate distress and arousable, maintained on support with BiPAP. VITAL SIGNS: Temperature 97.1, pulse 64, respirations 26, blood pressure is 103/49. HEENT: BiPAP in place. NECK: Appears to be supple. LUNGS: Scattered coarse breath sounds bilaterally. HEART: Regular, distant. I do not appreciate any murmur. ABDOMEN: Distended, somewhat firm. There is no overt peritoneal signs, although appears to have some degree of guarding, perhaps tenderness. RECTAL: Deferred. He has a fairly extensive skin eruption somewhat petechial to papular in nature, darkly erythematous. There are no ulcerations or bolus lesions. This is most evident on the distal upper extremities, some patches on the lower extremities as well as the torso. LABORATORY DATA: Ammonia less than 10. Chest x-ray, bilateral diffuse pulmonary edema versus pneumonitis. ABGs: pH 7.290, pCO2 of 32.3, pO2 of 83.5, FiO2 of 90%, BiPAP. CT of the chest, patchy nodular consolidative infiltrates, edema versus a more inflammatory process. Electrolytes: Sodium 137, potassium 4.5, chloride 107, bicarbonate is 17, anion gap of 13, BUN and creatinine 56 and 3.4, albumin of 2.7. CBC: White count of 15.8, H and H 8.6 and 26.4, platelets of 236. ASSESSMENT: Severe pneumonitis complicated by respiratory failure. Secondly, encephalopathy, perhaps related to the above. Thirdly, end-stage liver disease with cirrhosis, acute on chronic renal failure, potentially hepatorenal syndrome ____ eruption. This is fairly diffuse. Suspect immune related, doubt hypersensitivity. PLAN: We will continue empiric therapy with a combination of antibiotics. Go and check blood cultures to exclude an occult process. It is difficult to have a unifying diagnosis. Certainly has multiple issues and all of which are quite severe. At this point, he is quite tenuous. If indeed it would continue to worsen and is intubated, we will consider bronchoscopy for diagnosis. At this point, I do not ____ about the prospect of him expectorating sputum. We will do some urinary antigens. I would be concerned about fungal etiology as well. Check for underlying immune deficiency versus occult process. Consider skin biopsy as well. <ELECTRONICALLY SIGNED> By: Shiraz Dhillon MD 05/18/21 0458 1450 2030 Shiraz Dhillon MD /nt
[2021-05-18 05:30] LABS: ALBUMIN 2.9 g/dL (3.4-5.0); CALCIUM 7.5 mg/dL (8.5-10.1); CREATININE 3.9 mg/dL (0.7-1.3); PHOSPHORUS 4.5 mg/dL (2.5-4.9); POTASSIUM 4.1 mmol/L (3.5-5.1)
--- NOTE | 2021-05-18 06:00 | NUR ---
DURING REPOSITIONING, PATIENT 02 SATS DROPPED TO 80s, TACHYCARDIC ON MONITOR, REQUIRED 3 NURSES TO TURN PATIENT D/T PATIENT RESISTING MOVEMENT WITH ARMS AFTER REPOSITIONING, AUDIBLE SNORING WAS HEARD AND LEAKAGE NOTED ON VENT. CHECKED TUBING, INCREASED FI02 FROM 80% TO 100%, AND ELEVATED HOB. CALLED RT. RT HAD TO ADVANCE ETT ABOUT 2 CM. STAT CXR ORDERED TO CONFIRM ETT PLACEMENT.
[2021-05-18 07:16] LABS: HEMATOCRIT 25.1 % (42.0-52.0); HEMOGLOBIN 8.1 gm/dL (14.0-18.0); MCH 34.4 pg (26.0-34.0); MCHC 32.3 g/dL (28.0-37.0); MCV 106.4 fL (80.0-100.0); RBC 2.36 mil/uL (4.50-6.00); RDW 16.4 % (10.5-14.5); WBC 22.7 thou/uL (4.0-11.0)
[2021-05-18 09:36] LABS: ANISOCYTOSIS 1+; MACROCYTES 1+; PLATELET COUNT 139 thou/uL (150-400)
--- NOTE | 2021-05-18 16:29 | NUR ---
PATIENT SLOWLY PROGRESSING TOWARDS THE PLAN OF CARE. DECREASED OXYGEN DEMAND EVIDENCED BY PT TOLERATING DECREASED FIO2 ON THE VENTILATOR.
[2021-05-19] VITALS (97 sets, daily range): BP systolic 71–142; BP diastolic 40–72
--- NOTE | 2021-05-19 01:19 | NUR ---
SPOKE WITH Valeria MEJÍA TOWER TRUCK DRIVER TO PROVIDE UPDATE ON PT STATUS. PATIENT HR UP TO 140s. RELAYED LOW MAG LEVEL AND ORDERS GIVEN TO REPLACE AND RECHECK WITH AM LABS. DOPAMIN GTT STOPPED D/T MAP >60 AND TACHYCARDIC. PER ALFONZO, IF BP SUPPORT IS NEEDED, WILL TITRATE LEVO GTT
[2021-05-19 04:06] LABS: HAV IgM AB (ANTI-HAV IgM) Negative (Negative); HEPATITIS B SURFACE AG Negative (Negative); HIV ANTIBODY Non Reactive (Non Reactive)
[2021-05-19 04:34] LABS: ALBUMIN 3.1 g/dL (3.4-5.0); CALCIUM 7.5 mg/dL (8.5-10.1); CREATININE 4.3 mg/dL (0.7-1.3); PHOSPHORUS 5.3 mg/dL (2.6-4.7)
[2021-05-19 04:46] LABS: BASOPHILS 0.1 % (0.0-2.0)
[2021-05-19 04:50] LABS: ABSOLUTE NEUTROPHILS 10.8 thou/uL (1.4-8.2); LYMPHOCYTES 3.2 % (24.0-44.0); MCH 35.4 pg (26.0-34.0); MCV 104.3 fL (80.0-100.0); PLATELET COUNT 95 thou/uL (150-400); POLYS 91.7 % (36.0-66.0); RBC 1.81 mil/uL (4.50-6.00); RDW 16.5 % (10.5-14.5); WBC 11.7 thou/uL (4.0-11.0)
[2021-05-19 04:52] LABS: HEMATOCRIT 18.9 % (42.0-52.0); HEMOGLOBIN 6.4 gm/dL (14.0-18.0)
[2021-05-19 05:35] LABS: BE(vivo) -8.2 mmol/L (-2 to +3); HCO3 17.9 mmol/L (22.0-26.0); PCO2 38.7 mmHg (35.0-45.0); PO2 71.7 mmHg (80.0-100.0); sO2 92.6 % (92.0-98.0)
[2021-05-19 05:36] LABS: pH 7.282 (7.360-7.450)
--- NOTE | 2021-05-19 05:39 | NUR ---
SPOKE WITH DR. AGUIRRE D/T CRITICAL ABG RESULT. NO ORDERS GIVEN, PLAN TO ADMINISTER BLOOD, AND REEVALUATE POST-TRANSFUSION PER PHYSICIAN COMMUNICATION.
--- NOTE | 2021-05-19 06:00 | NUR ---
AT 0518, SPOKE WITH Valeria MEJÍA IT DESKTOP SUPPORT SPECIALIST D/T HGB 6.4 CL. HGB RESULT FROM PREVIOUS DAY 8.1; ORDERS GIVEN TO TRANSFUSE 1 UNIT PRBC. SPOKE WITH FAMILY BY PHONE TO OBTAIN VERBAL CONSENT WITH SECOND NURSE PRESENT WITNESS.
--- NOTE | 2021-05-19 06:45 | NUR ---
NEAR THE END OF SHIFT PATIENT BECAME LESS STABLE. PATIENT TACHYCARDIC, AWAKE AT TIMES, BITING ON TUBE, EYES POINTED TOWARD CEILING, DESAT TO 69%, HYPOTENSIVE AT TIMES WITH MAP <60, PATIENT APPEARED BLUE IN THE FACE. RT CALLED STAT. SEVERAL NURSES CALLED TO HELP. PATIENT SUCTIONED. STAT ABG COMPLETED. PATIENT PULLED UP IN BED AND SAT UPRIGHT. GTTS TITRATED TO HELP STABILIZE PATIENT. DAY SHIFT NURSE AWARE OF PATIENT STATUS.
[2021-05-19 06:52] LABS: BE(vivo) -6.8 mmol/L (-2 to +3); HCO3 19.5 mmol/L (22.0-26.0); PCO2 43.2 mmHg (35.0-45.0); PO2 58.5 mmHg (80.0-100.0); sO2 86.8 % (92.0-98.0)
[2021-05-19 06:54] LABS: pH 7.273 (7.360-7.450)
--- NOTE | 2021-05-19 08:22 | NUR ---
Pt TRANSFERRED TO ICU. WILL PLACE ON HOLD AND AWAIT NEW ORDERS WHEN APPROPRIATE
[2021-05-19 09:20] LABS: HEPATITIS C VIRUS AB <0.1
[2021-05-19 10:07] LABS: GLOMERULR BASEM MEMBRN AB 5 units (0-20)
--- NOTE | 2021-05-19 15:10 | 2DMMODE ---
[facility] [address] [place] [address] 2 D/M-MODE ECHOCARDIOGRAM Name: DANIEL LESTER Room #: 240-P ADM IN M.R.#: [id number] Admission: 05/15/21 Attend Phys: Barb Trevino MD Discharge: Date of : 44 Report #: [id number] THIS REPORT FOR: cc: Hussein Nolen MD, Nelopher MD Santiago, Patrick MD [facility] ~ APPROVED REPORT Study performed: 05/19/2021 11:45:58 EXAM: Comprehensive 2D, Doppler, and color-flow Echocardiogram Patient Location: Bedside Room #: 240 Status: routine BSA: 2.11 HR: 104 bpm BP: 108/66 mmHg Rhythm: Atrial Fibrillation Other Information Study Quality: Technically Difficult Technically limited study due to body habitus, inability to position patient, patient on ventilator. Indications Congestive Heart Failure Diabetes Dyspnea 2D Dimensions IVC: 27.00 mm Volumes Left Atrial Volume (Systole) Single Plane 4CH: 47.28 mL Single Plane 2CH: 66.23 mL LA ESV Index: 32.00 mL/m2 Aortic Valve AoV Peak Brad.: 1.19 m/s AO Peak Gr.: 5.63 mmHg LVOT Max P.74 mmHg LVOT Max V: 1.09 m/s Pulmonary Valve PV Peak Brad.: 1.13 m/s PV Peak Gr.: 5.09 mmHg [facility] [address] [place] [address] 2 D/M-MODE ECHOCARDIOGRAM Name: DANIEL LESTER Room #: 240-P ADM IN M.R.#: [id number] Admission: 05/15/21 Attend Phys: Nurys Centeno Discharge: Date of : 44 Report #: [id number] Tricuspid Valve TR Peak Brad.: 2.54 m/s TR Peak Gr.: 25.74 mmHg PA Pressure: 36.00 mmHg Left Ventricle The left ventricle is normal size. There is normal LV segmental wall motion. There is normal left ventricular wall thickness. The left ventricular systolic function is normal. The left ventricular ejection fraction is within the normal range. LVEF is 60-65%. This study is not technically sufficient to allow evaluation of the LV diastolic function due to atrial fibrillation. Right Ventricle The right ventricle is normal size. The right ventricular systolic function is normal. Atria Left atrium is at the upper limits of normal. Right atrium is dilated. Aortic Valve The aortic valve is normal in structure. No aortic regurgitation is present. There is no aortic valvular stenosis. Mitral Valve The mitral valve is normal in structure. There is no mitral valve regurgitation noted. No evidence of mitral valve stenosis. Tricuspid Valve The tricuspid valve is normal in structure. There is mild tricuspid regurgitation. Estimated PAP 36 mmHg. There is mild pulmonary hypertension. Pulmonic Valve The pulmonary valve is normal in structure. There is no pulmonic valvular regurgitation. Great Vessels The aortic root is normal in size. IVC is dilated and collapses <50% with inspiration. Pericardium There is no pericardial effusion. [facility] [address] [place] [address] 2 D/M-MODE ECHOCARDIOGRAM Name: RUBENSDANIEL GARCÍA Room #: 240-P ADM IN M.R.#: [id number] Admission: 05/15/21 Attend Phys: Nurys Centeno Discharge: Date of : 44 Report #: [id number] <Conclusion> Atrial fibrillation during the study Normal left ventricle size/wall thickness Ejection fraction 60% Normal right ventricle size/function Normal atrial size Normal aortic/mitral valve structure and function Mild tricuspid valve insufficiency Pulmonary systolic pressure estimated 36 mmHg No pericardial effusion Normal aortic root size <ELECTRONICALLY SIGNED> By: Israel Martinez MD, FACC 05/19/211509 09 09 Israel Martinez MD, FACC /INF
[2021-05-19 18:06] LABS: ANA INTERPRETATION Negative (())
[2021-05-20] VITALS (45 sets, daily range): BP systolic 80–103; BP diastolic 37–45
[2021-05-20 04:05] LABS: ALBUMIN 3.1 g/dL (3.4-5.0); CALCIUM 7.3 mg/dL (8.5-10.1); CREATININE 4.9 mg/dL (0.7-1.3); PHOSPHORUS 7.3 mg/dL (2.6-4.7); POTASSIUM 4.6 mmol/L (3.5-5.1)
--- NOTE | 2021-05-20 05:43 | NUR ---
This RN called [facility] to refer patient at 0530. Referral number is [id number]. Patient is not progressing towards goals.
[2021-05-20 12:22] LABS: HEMATOCRIT 21.9 % (42.0-52.0); HEMOGLOBIN 7.1 gm/dL (14.0-18.0); MCHC 32.5 g/dL (28.0-37.0); MCV 104.4 fL (80.0-100.0); RBC 2.1 mil/uL (4.50-6.00); RDW 18.3 % (10.5-14.5); WBC 18.8 thou/uL (4.0-11.0)
[2021-05-20 12:29] LABS: CALCIUM 7.4 mg/dL (8.5-10.1); CREATININE 5.3 mg/dL (0.7-1.3); POTASSIUM 5.4 mmol/L (3.5-5.1)
--- NOTE | 2021-05-20 12:30 | NUR ---
per family request of "where do we go from here" with her father's condition continuing to deteriorate despite intervention, rn discussed compassionate/pallative extubation and comfort care. Monique langston/loan stated she wanted to talk with family then return with a decision.
--- NOTE | 2021-05-20 16:11 | NUR ---
nely returned with decision for compassionate/pallative extubation today. calls placed to Dr. Trevino and Dr. Saab for orders. Ryann Mccoy RN started morphine gtt, then discontinued other gtts. Art, RT present, then extubated/dc'd og. well tolerated. placed on 02 for comfort. immediately desated into upper 70's to low 80's, then continued to decline. hr declining progressively into the 50's, the 30's, then asystole. Ashley Gomez RN and confirmed no apical breath sounds for 1 minute, no breathing. no pulse, no bp. Dr. Trevino notified. See Nursing Summary Worksheet for details. [facility] notified. Initially pt a candidate for Tissue Donation, then call returned from [facility], pt not a donation candidate. Body bagged, security notified, then present to coal picker body and paperwork.
--- NOTE | 2021-05-20 16:23 | NUR ---
PT'S CARE DISCUSSED DURING ICU ROUNDS THIS DAY. PT WAS MADE DNR YESTERDAY AND PT'S DTR DPOA MAY BE CONSIDERING PALLIATIVE EXTUBATION IN THE COMING DAYS. PT'S FIO2 IS 60%. CM FOLLOWING.
[2021-05-20 19:11] LABS: SYPHILIS AB Non Reactive (Non Reactive)
--- NOTE | 2021-05-22 07:11 | PATH ---
[facility] [address] [place] [address] PATHOLOGY RPT PROCEDURE Name: DANIEL LESTER Room #: 240-P DIS IN M.R.#: [id number] Admission: 05/15/21 Date of : 44 Discharge: 05/20/21 Report #: [id number] Path Case #: [id number] Note [facility] Accession Number: [id number] TESTS RESULT FLAG UNITS REF RANGE LAB Clinician Provided Cytology Information No. of containers..01 Other (Miscellaneous) Source: BHARTI WASHING DIAGNOSIS: 02 BHARTI WASHING NEGATIVE FOR MALIGNANT CELLS. PULMONARY MACROPHAGES AND ACUTE INFLAMMATORY CELLS PRESENT, INDICATIVE OF LOWER RESPIRATORY TRACT SAMPLING. THIS INTERPRETATION INCLUDES EVALUATION OF A CELL BLOCK. Signed out by: 02 Cassy Seaman MD, Pathologist NPI- [id number] Performed by: Jordi Jiménez, Probation And Patrol Agent ([facility]) Gross description: 01 10ML, SOPHY KHOURY /EHSAN 05/20/2021 1231 Local FLAG LEGEND: L-Low Normal,H-High Normal,LL-Alert Low,HH-Alert High <-Panic Low,>-Panic High,A-Abnormal,AA-Critical Abnormal Performed at: [address] [place] [address] Fabiano Ivan MD, [address] [address] Kyra Steiner MD, Specimen Comment: A courtesy copy of this report has been sent to [phone] Specimen Comment: Report sent to Performed at: [address], [place], [place] [id number] MD Fabiano Ivan MD Phone: [phone]
--- NOTE | 2021-05-22 07:11 | PATH ---
[facility] [address] [place] [address] PATHOLOGY RPT PROCEDURE Name: DANIEL LESTER Room #: 240-P DIS IN M.R.#: [id number] Admission: 05/15/21 Date of : 44 Discharge: 05/20/21 Report #: [id number] Path Case #: [id number] Note [facility] Accession Number: [id number] TESTS RESULT FLAG UNITS REF RANGE LAB Clinician Provided Cytology Information No. of containers..01 Other (Miscellaneous) Source: RLL WASHING DIAGNOSIS: 02 RLL WASHING NEGATIVE FOR MALIGNANT CELLS. NORMAL BRONCHIAL CELLS, ACUTE INFLAMMATION AND AND MACROPHAGES ARE PRESENT. PULMONARY MACROPHAGES PRESENT, INDICATIVE OF LOWER RESPIRATORY TRACT SAMPLING. THIS INTERPRETATION INCLUDES EVALUATION OF A CELL BLOCK. Signed out by: 02 Cassy Seaman MD, Pathologist NPI- [id number] Performed by: Jordi Jiménez, Professor Of Environmental Engineering ([facility]) Gross description: 01 11ML, IRAIDA BECKETT /EHSAN 05/20/2021 1229 Local FLAG LEGEND: L-Low Normal,H-High Normal,LL-Alert Low,HH-Alert High <-Panic Low,>-Panic High,A-Abnormal,AA-Critical Abnormal Performed at: [address] [place] [address] Fabiano Ivan MD, [address] [address] Kyra Steiner MD, Specimen Comment: A courtesy copy of this report has been sent to [phone] Specimen Comment: Report sent to Performed at: [address], [place], [place] [id number] MD Fabiano Ivan MD Phone: [phone]
[2021-05-22 19:07] LABS: HISTOPLASMA MYCELIAL-CF Negative (Neg:<1:2)
--- NOTE | 2021-05-28 00:06 | PATH ---
[facility] [place] [address] PATHOLOGY RPT PROCEDURE Name: DANIEL LESTER Room #: 240-P [facility] IN M.R.#: [id number] Admission: 05/15/21 Date of : 44 Discharge: 05/20/21 Report #: [id number] Path Case #: [id number] [facility] Accession Number: [id number] . 01 Material submitted: . lung - BHARTI LAVAGE. Modifiers: left, upper . 01 Clinical history: . HEMATOLYMPHOID NEOPLASIA ASSESSMENT (HNA) . 02 Diagnosis: Special studies report received from [facility], [address] [place] [address], [address], [place], [address], on case [id number], labeled with their number [id number], dated 05/23/2021. . Flow Cytometry: Hematologic Neoplasia Assessment . Clinical History . . Indication For Study Evaluation for hematolymphoid neoplasia . Specimen Fluid, BHARTI Lung Lavage . Viability 88% (7AAD exclusion) . Interpretation Fluid, BHARTI Lung Lavage: No significant lymphoid population is detected . Comments Correlation with available clinical, laboratory, and morphologic data is recommended. . Populations Analyzed Lymphocytes: 0% None detected Granulocytes: 22% Present Monocytes/ 1% Present Histiocytes: CD45 Negative 77% No significant reactivity with the markers tested Events/Debris: (may represent non-hematolymphoid cells, degenerated cells, debris, unlysed red blood cells, etc.) . Morphologic Evaluation A slide was reviewed for coding quality analyst purposes only. [address] [address] PATHOLOGY RPT PROCEDURE Name: DANIEL LESTER Room #: 240-P [facility] IN ..#: [id number] Admission: 05/15/21 Date of : 44 Discharge: 05/20/21 Report #: [id number] Path Case #: [id number] . Specimen Description Total Cell Yield: 2.99 X 10 and 6 . Reagent(s) Used CD2, CD3, CD4, CD5, CD7, CD8, CD10, CD11b, CD19, CD20, CD23, CD30, CD38, CD43, CD45, CD56, CD57, FMC-7, HLA-DR, kappa, lambda . at [facility]. Ja Gomez MD Hematopathologist . Intended Use Flow cytometry is optimally used to immunophenotypically characterize abnormal populations when they are detected. Negative flow cytometry results do not exclude lymphoma or neoplasia. Possible false negative flow cytometry results may occur in, but are not limited to, the following: neoplastic cells in Hodgkin lymphoma are not typically adequately represented by routine clinical flow cytometry; neoplastic cells may be lost or inadequately represented due to degeneration, sample processing, sampling artifact, or patchy involvement; plasma cells are typically underrepresented by flow cytometry; immature cells/blasts may be underrepresented due to hemodilution; myeloproliferative disorders and low grade myelodysplasia may not have immunophenotypic abnormalities or increased blasts. Correlation with all available clinical, laboratory, and morphologic data is always necessary to assess for the possibility of false negative flow cytometry results and to establish a diagnosis. Each marker in this analysis was used to assess for potential antigenic abnormalities or to evaluate detected abnormalities. . Any image or images that accompany this report are accounting representative images only and should not be used to render a diagnosis. . Disclaimer(s) This test was developed and its performance characteristics determined by [facility]. It has not been cleared or approved by the Food and Drug Administration. . [facility] is a business unit of [facility] a wholly-owned subsidiary of [employer]. . This test was performed at [facility]. at [address] [place] [address], [phone] - Hat Body Sorter: Mitul Cortes MD. . [facility] [address] [place] [address] PATHOLOGY RPT PROCEDURE Name: DANIEL LESTER Room #: 240-P DIS IN M.R.#: [id number] Admission: 05/15/21 Date of : 44 Discharge: 05/20/21 Report #: [id number] Path Case #: [id number] For inquiries, the physician may contact Lab: [phone] . A complete copy of the report is on file. . Professional services performed by [employer]. at [address], [place] [address]. Technical services performed by [employer] at [address], [place] [address]. . (CLW:formerly [facility] 05/23/2021) . . [facility] 05/23/2021 1450 Local . 02 Electronically signed: . Lisa Cabral MD, Pathologist NPI- [id number] . 02 Pathologist provided ICD-10: R73.9, D72.829, R10.9, N17.9 . 02 CPT . 304062 Specimen Comment: A courtesy copy of this report has been sent to [phone] Specimen Comment: [phone] Specimen Comment: Report sent to / DR CONWAY Performed at: 01 [facility] [address] [facility] [address], [place] [id number] MD Fabiano Ivan MD Phone: [phone] Performed at: 02 [facility] [id number] [place] [id number] MD Lisa Cabral MD Phone: [phone]
== END 2021-05-20 16:11 | DRG 208 ==
LOC: ER 07:42 → EROBS 09:59 → ICU 09:59 → 2N 09:59 → EROBS 10:37 → 2N 22:04 → ICU 05-17 00:33
PROVIDERS: Emergency Medicine; Hospitalist; Internal Medicine Nephrology; Nurse Practitioner; Nurse Practitioner Family; Pediatrics; Specialist; ADMIT Hospitalist; ATTEND Hospitalist
PROC: 02HV33Z Insertion of Infusion Device into Superior Vena Cava, Percutaneous Approach (ICD-10-PCS; 2021-05-15)
PROC: 0B9G8ZX Drainage of Left Upper Lung Lobe, Via Natural or Artificial Opening Endoscopic, Diagnostic (ICD-10-PCS; principal; 2021-05-17)
PROC: 0BH17EZ Insertion of Endotracheal Airway into Trachea, Via Natural or Artificial Opening (ICD-10-PCS; principal; 2021-05-17)
PROC: 5A1945Z Respiratory Ventilation, 24-96 Consecutive Hours (ICD-10-PCS; principal; 2021-05-17)
PROC: 0B9C8ZX Drainage of Right Upper Lung Lobe, Via Natural or Artificial Opening Endoscopic, Diagnostic (ICD-10-PCS; principal; 2021-05-17)
PROC: 0B9F8ZX Drainage of Right Lower Lung Lobe, Via Natural or Artificial Opening Endoscopic, Diagnostic (ICD-10-PCS; principal; 2021-05-17)
PROC: 5A09357 Assistance with Respiratory Ventilation, Less than 24 Consecutive Hours, Continuous Positive Airway Pressure (ICD-10-PCS; principal; 2021-05-17)
DX: J15.211 Pneumonia due to Methicillin susceptible Staphylococcus aureus (principal); J96.01 Acute respiratory failure with hypoxia; G93.41 Metabolic encephalopathy; E43 Unspecified severe protein-calorie malnutrition; N17.9 Acute kidney failure, unspecified; R04.2 Hemoptysis; K56.609 Unspecified intestinal obstruction, unspecified as to partial versus complete obstruction; R04.89 Hemorrhage from other sites in respiratory passages; I69.354 Hemiplegia and hemiparesis following cerebral infarction affecting left non-dominant side; E78.5 Hyperlipidemia, unspecified; K21.9 Gastro-esophageal reflux disease without esophagitis; K74.60 Unspecified cirrhosis of liver; E11.649 Type 2 diabetes mellitus with hypoglycemia without coma; L27.0 Generalized skin eruption due to drugs and medicaments taken internally; R60.1 Generalized edema; E66.9 Obesity, unspecified; K43.9 Ventral hernia without obstruction or gangrene; E11.22 Type 2 diabetes mellitus with diabetic chronic kidney disease; E86.0 Dehydration; L98.419 Non-pressure chronic ulcer of buttock with unspecified severity; R13.19 Other dysphagia; N18.31 Chronic kidney disease, stage 3a; R53.81 Other malaise; D69.6 Thrombocytopenia, unspecified; K08.89 Other specified disorders of teeth and supporting structures; Z20.822 Contact with and (suspected) exposure to COVID-19; I12.9 Hypertensive chronic kidney disease with stage 1 through stage 4 chronic kidney disease, or unspecified chronic kidney disease; K75.81 Nonalcoholic steatohepatitis (NASH); Z90.49 Acquired absence of other specified parts of digestive tract; Z87.11 Personal history of peptic ulcer disease; Z88.8 Allergy status to other drugs, medicaments and biological substances; Z91.041 Radiographic dye allergy status; Z91.013 Allergy to seafood; Z87.891 Personal history of nicotine dependence; Z51.5 Encounter for palliative care
CPT/HCPCS: 10081; 10203; 85076